=== PATIENT | female | born 1950 | race Caucasian/White ===

== ENCOUNTER 2023-06-01 04:12 | Outpatient (CLI) | payer MEDICARE, BC, SELFPAY | END 2023-06-01 04:13 | disposition home or self-care (01) | LOC: AMB 06-05 20:38 | PROVIDERS: Visit Provider Internal Medicine | DX: E11.649 Type 2 diabetes mellitus with hypoglycemia without coma (principal); R41.82 Altered mental status, unspecified | CPT/HCPCS: A0425; A0427 ==

== ENCOUNTER 2023-06-01 05:35 | Emergency (ER) | payer MEDICARE, BC, SELFPAY ==
--- NOTE | 2023-06-01 05:45 | ED_ITS ---
HPI - General Adult General Chief complaint: Diabetic Related Problem Stated complaint: low blood sugar Time Seen by Provider: 06/01/23 05:45 History of Present Illness HPI narrative: Patient is a 72-year-old woman who takes Ozempic Jardiance and insulin for her diabetes. She states that her insulin and Ozempic of been stable but Jardiance was recently added. Patient became weak and diaphoretic over night and blood sugars at home were in the 50-60 range. This is unusual for her. She developed no chest pain shortness a breath orthopnea no PND no nausea no vomiting. EMS was called the patient was given oral glucose with improvement of blood sugar to greater than 100. Patient is lead was going to refuse transfer she was feeling much better but did come in for further evaluation. She is now feeling fine. Related Data Home Medications Medication Instructions Recorded Confirmed insulin aspar prt-insulin aspart 28 - 40 unit subcut USEASDIRECTD 06/01/23 06/01/23 100 unit/mL (70-30) subcutaneous soln (Novolog Mix 70-30 U-100 Insuln) simvastatin 40 mg tablet (Zocor) 40 mg PO QHS 06/01/23 06/01/23 Allergies Allergy/AdvReac Type Severity Reaction Status Date / Time atorvastatin Allergy Mild Muscle Verified 06/01/23 05:54 Cramps Review of Systems Status of ROS: Reports: 10 or more systems reviewed and unremarkable except as noted in History and below [facility] Medical History (Updated 06/01/23 @ 07:28 by Easton Gaytan MD) Renal insufficiency ?N28.9 - Disorder of kidney and ureter, unspecified (ICD-10) Dyslipidemia ?E78.5 - Hyperlipidemia, unspecified (ICD-10) Chronic kidney disease, stage 4 (severe) ?N18.4 - Chronic kidney disease, stage 4 (severe) (ICD-10) Diabetic neuropathy ?E11.40 - Type 2 diabetes mellitus with diabetic neuropathy, unspecified (ICD-10) 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 EYES: No scleral icterus. LYMPH: No supraclavicular or cervical lymphadenopathy. SKIN: Visible skin seen during exam normal or with benign process only. EXT: No dependent lower extremity pedal edema. HEART: Regular rate and rhythm with no murmurs, rubs, or gallops. LUNGS: Clear to auscultation bilaterally with no crackles or wheezes. ABD: Soft, non tender, non distended. PSYCH: Good eye contact, speech is not pressured. Const: Vital Signs, click to edit/add: Vital Signs - 24 hr 06/01/23 05:46 06/01/23 07:18 Temperature 98.2 F Pulse Rate [Right Pulse Oximeter] 87 67 Respiratory Rate 18 16 Blood Pressure [Ri t Upper Arm] 150/75 H 132/74 Pulse Oximetry 99 95 Oxygen Delivery Me thod Room Air Room Air Course Course ED Course: Patient seen and examined. Will start with 500 mL of normal saline and obtain CBC CMP and troponin. Vital Signs Vital signs: Initial Vital Signs Temperature 98.2 F 06/01/23 05:46 Temperature Source Temporal Artery Scan 06/01/23 05:46 Pulse Rate 87 06/01/23 05:46 Respiratory Rate 18 06/01/23 05:46 Blood Pressure 150/75 H 06/01/23 05:46 Blood Pressure Mean 100 06/01/23 05:46 Blood Pressure Position Sitting 06/01/23 05:46 Pulse Oximetry 99 06/01/23 05:46 Oxygen Delivery Method Room Air 06/01/23 05:46 Vital Signs Temperature 98.2 F 06/01/23 05:46 Pulse Rate 87 06/01/23 05:46 Respiratory Rate 18 06/01/23 05:46 Blood Pressure 150/75 H 06/01/23 05:46 Pulse Oximetry 99 06/01/23 05:46 Oxygen Delivery Method Room Air 06/01/23 05:46 Temperature 98.2 F 06/01/23 05:46 Pulse Rate 67 06/01/23 07:18 Respiratory Rate 16 06/01/23 07:18 Blood Pressure 132/74 06/01/23 07:18 Pulse Oximetry 95 06/01/23 07:18 Oxygen Delivery Method Room Air 06/01/23 07:18 Medical Decision Making MDM Narrative Medical decision making narrative: Patient is a 72-year-old woman who woke up with hypoglycemia. She has taken oral glucose both at the scene and via EMS and her blood sugars down 168. Troponin is negative CBC is unremarkable electrolytes look reasonable with the exception of a creatinine of 3.0. She states this this is chronic and she is follow-up appointment in the next several weeks with Nephrology. At this time I did cut her insulin back from 28 units the morning and 28 units in the evening to 28 units twice daily. She Will continue her Ozempic and Jardiance. She will follow-up with her doctor this coming week for further direction on her blood sugars. Lab Data Labs: Lab Results 06/01/23 Range/Units 06:07 WBC 11.54 H (4.50-11.00) K/uL RBC 4.36 (4.00-5.20) m/uL Hgb 13.4 (12.0-16.0) gm/dL Hct 42.2 (33.0-51.0) % MCV 97 (80-100) fL MCH 31 (26-34) pg MCHC 32 (32-36) gm/dL RDW Coeff of Cierra 14.4 (11.5-15.5) % Plt Count 283 (140-440) K/uL Neut % (Auto) 75.8 H (42.0-72.0) % Lymph % (Auto) 15.1 L (20-44) % [place] % (Auto) 7.4 (0.0-11.0) % Eos % (Auto) 0.4 (0.0-7.0) % Baso % (Auto) 0.3 (0.0-3.0) % Neut # (Auto) 8.70 H (1.7-7.0) K/uL Lymph # (Auto) 1.70 (0.90-2.90) K/uL [place] # (Auto) 0.90 (0.00-0.90) K/UL Eos # (Auto) 0.00 (0.00-0.50) K/uL Baso # (Auto) 0.00 (0.00-0.30) K/uL Abs Immat Gran (auto) 0.10 (0.00-0.30) K/uL Imm/Tot Granulo (auto) 1.0 % Sodium 141 (135-149) mmol/L Potassium 4.2 (3.6-5.1) mmol/L Chloride 110 (96-114) mmol/L Carbon Dioxide 22 (20-32) mmol/L Anion Gap 9 (7-15) mEq/L BUN 54 H (7-30) mg/dL Creatinine 3.0 H (0.5-1.5) mg/dL Estimated Creat Clear 15.03 Estimated GFR 16 ml/min Glucose 168 H (60-115) mg/dL Calcium 9.0 (8.4-10.6) mg/dL Total Bilirubin 0.4 (0.1-1.5) mg/dL AST 27 (12-35) U/L ALT 23 (4-35) U/L Alkaline Phosphatase 87 (40-150) U/L Troponin I < 0.01 L (0.01-0.04) ng/mL Total Protein 6.0 (6.0-8.3) g/dL Albumin 3.7 (3.3-5.0) g/dL Discharge Plan Discharge Clinical Impression: Hypoglycemia Patient Disposition: Home, Self-Care Condition: Stable Instructions: Hypoglycemia in a Person with Diabetes (ED) Additional Instructions: Decrease insulin to 28 units twice daily Continue the remainder medication Monitor diet Call your doctor this coming week for further instructions. Activity Level: No Restrictions Discharge Diet: Regular Prescriptions: No Action insulin asp prt-insulin aspart [Novolog Mix 70-30 U-100 Insuln] 100 unit/mL (70-30) solution 28 - 40 unit subcut USEASDIRECTD Rx Instructions: take 28 units AM, 40 units PM. simvastatin [Zocor] 40 mg tablet 40 mg PO QHS Follow Up/Referrals: Provider,Not a Local [Primary Care Provider] - Stand Alone Forms: MyHealth Info Instructions
[2023-06-01 05:46] VITALS: BP 150/75; PULSE 87; RESP 18; TEMP 36.8; O2SAT 99; BMI 25.0
[2023-06-01] MEDS: 0.9 % SODIUM CHLORIDE 500 ML 500 ML IV (05:59)
[2023-06-01 06:26] LABS: Albumin* 3.7 g/dL (3.3-5.0); Chloride* 110 mmol/L (96-114); Potassium* 4.2 mmol/L (3.6-5.1); Sodium* 141 mmol/L (135-149)
[2023-06-01 06:28] LABS: Est. Creatinine Clearance* 15.03; Estimated Glomerular Filt Rate 16 ml/min
[2023-06-01 06:29] LABS: Alanine Aminotransferase* 23 U/L (4-35); Alkaline Phosphatase* 87 U/L (40-150); Anion Gap 9 mEq/L (7-15); Aspartate Amino Transferase* 27 U/L (12-35); Bilirubin Total* 0.4 mg/dL (0.1-1.5); Blood Urea Nitrogen* 54 mg/dL (7-30); Carbon Dioxide* 22 mmol/L (20-32); Glucose* 168 mg/dL (60-115)
[2023-06-01 06:30] LABS: Basophils Percent Auto 0.3 % (0.0-3.0); Eosinophils Percent Auto 0.4 % (0.0-7.0); Hematocrit 42.2 % (33.0-51.0); Hemoglobin* 13.4 gm/dL (12.0-16.0); Lymphocytes Percent Auto 15.1 % (20-44); Mean Corpuscular HGB Conc 32 gm/dL (32-36); Mean Corpuscular Hemoglobin 31 pg (26-34); Mean Corpuscular Volume 97 fL (80-100); Monocytes Percent Auto 7.4 % (0.0-11.0); Neutrophils Percent Auto 75.8 % (42.0-72.0); Platelet Count* 283 K/uL (140-440); RDW Coefficient of Variation % 14.4 % (11.5-15.5); Red Blood Count 4.36 m/uL (4.00-5.20); White Blood Count* 11.54 K/uL (4.50-11.00)
[2023-06-01 06:39] LABS: Slide Review Reflex No
[2023-06-01 07:09] LABS: Troponin I* < 0.01 ng/mL (0.01-0.04)
[2023-06-01 07:18] VITALS: BP 132/74; PULSE 67; RESP 16; O2SAT 95
--- NOTE | 2023-06-01 07:18 | ED.NURSE ---
patient is feeling better and wants to go home. stated i am tired.
== END 2023-06-01 07:38 | disposition home or self-care (01) ==
PROVIDERS: Emergency Provider Internal Medicine
DX: E11.649 Type 2 diabetes mellitus with hypoglycemia without coma (principal)
CPT/HCPCS: 36415; 80053; 82962; 84484; 85025; 99283; 99284; J7120

== ENCOUNTER 2025-08-27 07:05 | Observation (INO) | payer MEDICARE, BC, SELFPAY ==
--- OUTSIDE RECORDS SUMMARY | 2025-07-13 11:00 | XMS_ITS | Encounter Summary ---
Author Organization [email or web address] Address [address] [place] [id number] Care Team Providers Care Director Of Testing Name Role Phone Lisandro Amor MD Primary Care Provider [phone] Reason for Visit * ReasonCommentsMOHS SURGERYBCC Right Chin * Consult/Transfer Care (Routine) - New RequestSpecialtyDiagnoses / Procedures Referred By ContactReferred To Contact Diagnoses Basal cell carcinoma of face Jose Cruz Gallegos MD [address] [place] [address] Phone: tel: fax: Referral IDStatusReasonStart DateExpiration DateVisits RequestedVisits [id number] Encounter Details DateTypeDepartmentCare Team (Latest Contact Info)Yvsxhcnyosa70/12/2025 11:00 AM CSTOffice Visit [facility] [address] [place], [place] [address] Genna Rowell MD [address] [place] [address] Basal cell carcinoma of chin (Primary Dx) Social History Tobacco UseTypesPacks/DayYears UsedDateSmoking Tobacco: FormerCigarettes0.520 Smokeless Tobacco: Never Comments:Quit smoking: Alcohol UseStandard Drinks/WeekCommentsNot Currently0 (1 standard drink = 0.6 oz pure alcohol)Social, <2 drink/monthAUDIT-CAnswerDate RecordedQ1: How often do you have a drink containing alcohol?Monthly or less01/14/2022Q2: How many drinks containing alcohol do you have on a typical day when you are drinking?1 or 2 01/14/2022Q3: How often do you have six or more drinks on one occasion?Never 01/14/2022HQ-2AnswerDate RecordedPHQ-2 [id number] Stability Vital SignAnswerDate RecordedIn the last 12 months, was there a time when you were not able to pay the mortgage or rent on time?No01/14/2022In the last 12 months, how many places have you lived?In the last 12 months, was there a time when you did not have a steady place to sleep or [facility] (including now)?No01/14/2022Hunger Vital SignAnswerDate RecordedWithin the past 12 months, you worried that your food would run out before you got the money to buymore. Never true06/29/2025Within the past 12 months, the food you bought just didn't last and you didn't have money to get more.Never true06/29/2025PRAPARE - TransportationAnswerDate RecordedIn the past 12 months, has lack of transportation kept you from medical appointments or from getting medications?No 06/29/2025In the past 12 months, has lack of transportation kept you from meetings, work, or from getting things needed for daily living?No06/29/2025 Housing Stability Vital SignAnswerDate RecordedIn the last 12 months, was there a time when you were not able to pay the mortgage or rent on time?Patient udvnkhir86/29/2025In the past 12 months, how many times have you moved where you were living?t any time in the past 12 months, were you homeless or living in a long term (including now)?No06/29/2025HC UtilitiesAnswerDate Recorded In the past 12 months has the [employer], gas, oil, or water [email or web address] threatened to shut off services in your home?No06/29/2025CommentsNoSex and Gender InformationValueDate RecordedSex Assigned at BirthNot on fileLegal SexFemale 12/16/2014 5:04 PM CDTGender IdentityNot on fileSexual OrientationNot on file OccupationIndustryJob Start DateJob End DateNWNot on fileNot on fileNot on file documented as of this encounter Patient Instructions * Patient Instructions* Bonny Durant RN - 07/13/2025 11:00 AM ALIGNMENT SPECIALIST Dermatologic Surgery Wound Care All Patients: Following skin surgery, you can expect: Mild to moderate bruising on or around surgical site Moderate swelling Mild to moderate pain For surgery on the scalp, forehead, religious, eye or nose - bruising and swelling around the eyes is normal and usually lasts for several days. For surgery on the arm, hand, leg and foot - swelling of the hands or feet is normal. Keeping the area elevated and using an arm sling or wrapping with an VIOLETA wrap will help to control swelling. Call the office or present to urgent care if you experience any of the following: Constant fever above 101 F Intense pain near surgical site Increased swelling, spreading redness or uncontrolled bleeding Reopening of the wound at any time Yellowish drainage from the wound Bleeding: During the first 24 to 48 hours, a small amount of bleeding around the dressing/bandage may be noticed. You may reinforce the dressing with more tape if needed. Try to avoid removing the dressing even if light bleeding is noticed, since this may lead to even more bleeding. If bleeding or drainage continues or saturates the dressing: Apply firm and direct pressure with a clean cloth or gauze for 20 minutes (set a timer). Do not release pressure to look at bleeding status during this time. If bleeding continues after 20 minutes, apply pressure again for 20 additional minutes. If the bleeding persists, continue the pressure & call our office for further instructions. If bleeding stops, you may add additional gauze over the dressing or change the saturated dressing, securing it in place with tape. Pain Management: Avoid taking non-prescribed aspirin for pain, unless directed to do so by a physician. Tylenol is okay to take (500-650 mg every 4-6 hours as needed) or you may take the prescription pain medication given to you by our physician. DO NOT take Tylenol along with prescription pain medication as this can be damaging to the liver and kidneys and/or possibly lead to an overdose. If you are still having pain, you may also take ibuprofen 400 mg every 4-6 hours as needed as long as it is ok with your primary care and/or other physicians. Use an ice pack over the surgical site for 20 minutes, every 2 hours while awake for the first 24-48 hours. Activity: Relax and take it easy for the first 48 hours after surgery and avoid activities that would raise your heart rate or blood pressure. Elevate surgical site (head, neck, arm, leg) on 2-3 pillows when lying or sitting. Use an ice pack over the surgical site for 20 minutes, every 2 hours while awake for the first 24-48 hours. Avoid bending over, reaching, stretching, or lifting greater than 10 lbs. for 2 weeks. NO aerobic exercise for 14 days; brisk walking, gardening, golfing, etc. This type of activity can put your sutures under stress, interfere with healing, and cause bleeding. Avoid prolonged water exposure (swimming or soaking) for 3 weeks or until the wound is healed. Avoid drinking alcohol for one week following your procedure. Alcohol increases risk of bleeding. Avoid smoking. Smoking greatly decreases wound healing. IMPORTANT PHONE NUMBERS For any questions concerning your surgical wound site(s), please call the numbers below. If you leave a message, please include your full name, date of , date and office location of surgery, body site, and a brief description of your problem or question: Friday - Friday between the hours of 7:30 a.m. and 3:30 p.m., please call Dr. Rowell's Nurse Line: [phone] ALWAYS USE THIS NUMBER DURING BUSINESS HOURS. Dr. Rowell is not in the office on Friday, but her nurse line is available to answer any questions. For emergency use only on evenings, weekends, and holidays, please call or text Dr. Rowell's mobile number: [phone] We request that you always contact us by phone first, on Dr. Rowell's Nurse Line, to schedule anappointment if you feel you need to be seen in clinic. Standard Care Instructions Leave the initial pressure dressing/bandage applied in the clinic AND KEEP DRY for 2 days, until Friday. When it is time to remove the dressing, remove it very gently as not to disrupt the wound and any sutures underneath. Some amount of blood on the dressing is normal. The easiest way to remove the dressing is to let shower water get it wet and loosen the tape. Once the dressing is off, gently wash the wound with warm, soapy water. Apply ointment (clean Vaseline, petrolatum, or Aquaphor) to the incision with a cotton swab (Q-tip)and cover with a small piece of non-adherent gauze (such as Telfa) and tape. Avoid placing tape or adhesive directly over incision. Do not let the area dry out or form a scab, as it can slow healing and create scarring. Perform site care twice per day until the surface of the incision has healed - usually for 2-3 weeks. 4 weeks after surgery: You can start gently massaging the scar area for a few minutes a day. You may apply silicone gel twice a day (ScarAway, Scar Recovery, Biocorneum or Serica gel available at [facility] or online). Protect the healing scar from the sun. Apply sunscreen regularly when outdoors. NMENT SPECIALIST documented in this encounter Progress Notes * Genna Rowell MD - 07/13/2025 11:00 AM CST Chief Complaint Patient presents with MOHS SURGERY BCC Right Chin S:Chelsey Mosley is a 75 y.o. female referred by Dr. Jose Cruz Gallegos who presents for evaluation and possible surgical treatment of a BCC of the right chin. Pt reports biopsy site has been healing well. No other lesions of concern. ROS: No fevers/chills. No other skin complaints. PMH: Reviewed in health profile. Medications: Reviewed in patients health profile. The patient has a current medication list which includes the following prescription(s): contour next, contour next ez, empagliflozin, freestyle, novolog mix 70/30, insulin pen needle, latanoprost, lisinopril, multiple vitamin, cvs fish oil, semaglutide, and simvastatin. Allergies: The patient is allergic to atorvastatin. OBJECTIVE : Constitutional: Alert, WDWN, cooperative in no acute distress. Biopsy site easily identified and site confirmed by pt and photo Path report was reviewed with pt FINAL DIAGNOSIS - [id number] A. Skin, Right Chin, shave: - Basal cell carcinoma, nodular and micronodular patterns, extending to the base of the specimen. ASSESSMENT/PLAN: 1. Biopsy proven BCC, right chin --Pt was educated regarding dx --Discussed all management options with patient, including benefits and risks of each: no treatment, excision and repair, Mohs micrographic surgery --Pt elected Mohs micrographic surgery and understands the risks of scar (including scar widening, hypertrophic/keloid scar, erythematous/hyperpigmented/hypopigmented scar), bleeding, infection, numbness, recurrence, dehiscence --Patient would like to go forward with procedure today, which was subsequently done --Please see operative note and consent form for further details F/U 1 week, sooner PRN. Also follow-up with referring provider per their instructions or sooner prn. NMENT SPECIALIST * Genna Rowell MD - 07/13/2025 11:00 AM CST 3Dermatology: Mohs Micrographically Controlled Tumor Extirpation Mohs Surgeon: Genna Rowell M.D. [facility] Rn: Bonny Durant RN Anesthesia: 1% Lidocaine with epinephrine Cancer Type: Micronodular and Nodular Basal Cell Carcinoma Anatomic Site: Right chin Preoperative Lesion Size: 0.9 cm x 0.9 cm Operation: Mohs micrographically controlled tumor extirpation Indication: anatomic location and micronodular growth pattern Final Surgical Defect Size: 1.4 cm x 1.1 cm Skin Preparation: Hibiclens Preoperative Medication(s): none MOHS STAGE I: The nature and purpose of the procedure, associated risks, possible consequences and complications,and alternative forms of treatment were explained in detail. The biopsy site was identified and wasconfirmed by the patient and the photo provided. An informed operative consent and photo permit were obtained. The patient was positioned, prepped, and draped in the usual sterile manner. Local anesthesia was obtained with local anesthetic as listed above. The clinically apparent tumor was then debulked with a curette. A 2 mm rim of normal appearing skin was marked circumferentially around the defect. The area thus outlined was excised deep to reticular dermis and subcutis. Hemostasis was achieved with bipolar electrocoagulation. The specimen was oriented, mapped, subdivided into 2 sections, chromacoded, and submitted for horizontal frozen sections. The patient tolerated the procedure well,no complications were noted, and a pressure dressing was placed. Microscopic tumor was found persisting in none of the specimens. The total number of microscopic sections from all Mohs stages was 2. Genna Rowell MD acted in two separate but integrated capacities as both the surgeon and the pathologist. MOHS DEFECT RECONSTRUCTION PROCEDURE Operation: Intermediate linear closure of Mohs defect described above. Final Linear Closure: 4.0 cm. Various closure modalities were discussed with the patient, and it was decided that an intermediatelinear repair would best preserve normal anatomic and functional relationships. The nature and purpose of the procedure, associated risks, possible complications, and alternative methods of treatmentwere explained to the patient in detail by Genna Rowell MD. An informed operative consent was obtained. The patient was positioned, prepped, and draped in the usual sterile manner. Adequate anesthesia was then obtained by infiltrating local anesthesia as listed above along the edges and at thebase of the defect. The edges of the defect were undermined at the dermal subcutaneous layer approximately 1.0 cm in all directions. The edges could then be opposed without significant tension. Excision of standing tissue cones was performed via triangulation technique. Adequate hemostasis was achieved with bipolar electrocoagulation. The subcutaneous and dermal tissues were opposed and sutured with multiple 4-0 Monocryl sutures. The epidermal edges were then closed with multiple 5-0 Prolene sutures. The final incision lines were placed with respect for the patient's natural skin tension lines. The surgical site was lightly scrubbed. A Mupirocin ointment, Telfa and gauze pressure dressing was applied to the surgical site. The patient tolerated the procedure well without complications and was given both verbal and written explicit instructions on postoperative wound care and pain management. Follow-up for suture removal in 7 days. Patient was recommended Extra Strength Tylenol per package directions, as needed for mild pain control. The patient was discharged stable from the Dermatology Clinic. [facility] [address] [place] [id number] NMENT SPECIALIST documented in this encounter Plan of Treatment DateTypeDepartmentCare Team (Latest Contact Info)Kcseyosheux41/05/2026 3:00 PM CSTAppointment [facility] [address] [place] [address] Yas Wallis, OTR/L [address] [place] [address] 12/27/2025 3:15 PM CDTAppointment [facility] [address] [place] [address] Yarelis Mosley, CELL BIOLOGY SCIENTIST, [employer] [address] [place] [address] NameTypePriorityAssociated DiagnosesOrder ScheduleDermatology Surgery/Mohs Consult AdultReferralRoutine Basal cell carcinoma of face Ordered: 06/07/2025documented as of this encounter Visit Diagnoses Diagnosis Basal cell carcinoma of chin- Primary Basal cell carcinoma of skin of other and unspecified parts of face documented in this encounter Care Teams Team MemberRelationshipSpecialtyStart [place] [address] [place] [address] PCP - GeneralFamily Qlbejqgn24/10/24documented as of this encounter
--- OUTSIDE RECORDS SUMMARY | 2025-07-20 12:00 | XMS_ITS | Encounter Summary ---
Author Organization [facility] Address [address] [place] [address] Care Team Providers Care Duct Maker Name Role Phone Lisandro Amor MD Primary Care Provider [phone] Reason for Visit * ReasonCommentsSuture/Staple Removal Encounter Details DateTypeDepartmentCare Team (Latest Contact Info)Igxabwcwvia90/19/2025 12:00 PM CSTNursing Visit [facility] [address] [place] [address] Nurse Teri Rowell Encounter for removal of sutures (Primary Dx) Social History Tobacco UseTypesPacks/DayYears UsedDateSmoking [...] more drinks on one occasion?Never 01/14/2022HQ-2AnswerDate RecordedPHQ-2 Kptjb317Housing Stability Vital SignAnswerDate RecordedIn the last 12 months, was there a time when you were not able to pay the mortgage or rent on time?No01/14/2022In the last 12 months, how many places have you lived?In the last 12 months, was there a time when you did not have a steady place to sleep or slept in ashelter (including now)?No01/14/2022Hunger Vital SignAnswerDate RecordedWithin the past [...] pay the mortgage or rent on time?Patient wbpvdsal05/29/2025In the past 12 months, how many times have you moved where you were living?t any time in the past 12 months, were you homeless or living in a [place] [facility] [place] (including now)?No06/29/2025HC UtilitiesAnswerDate Recorded In the past 12 months has the [employer], gas, oil, or water [employer] threatened to shut off services in your home?No06/29/2025CommentsNoSex and Gender InformationValueDate RecordedSex Assigned at BirthNot on fileLegal SexFemale 12/16/2014 5:04 PM CDTGender IdentityNot on fileSexual OrientationNot on file OccupationIndustryJob Start DateJob End DateNWNot on fileNot on fileNot on file documented as of this encounter Progress Notes * Bonny Durant RN - 07/20/2025 12:00 PM CST Department of Dermatology: Suture Removal Subjective: Chelsey Mosley is here today for suture removal. Site(s): Chin Patient states that the site(s) is healing well. Observation: Well-healing surgical site(s) with sutures in place and no signs of infection. Plan: Sutures removed today from all sites. The site(s) were dressed with petroleum jelly with an adhesive bandage. Patient instructions provided for continued after care, signs of infection, and activity restrictions. Patient is to RTC as directed. Attending Physician: Dr. Rowell DIEM PHYSICAL THERAPIST documented in this encounter Plan of Treatment DateTypeDepartmentCare Team (Latest Contact Info)Ttfyqcxagkj95/05/2026 3:00 PM CSTAppointment [facility] [address] [place] [address] Yas Wallis, OTR/L [address] [place] [address] 12/27/2025 3:15 PM CDTAppointTrinity [facility] [address] [place] [phone] Yarelis Mosley, EXPORT SPECIALIST, HOME HEALTH ATTENDANT [address] [place], [place] [phone] documented as of this encounter Visit Diagnoses Diagnosis Encounter for removal of sutures- Primary documented in this encounter Care Teams Team MemberRelationshipSpecialtyStart [place] [address] [place] [address] PCP - GeneralFamily Zepdufgi42/10/24documented as of this encounter
--- OUTSIDE RECORDS SUMMARY | 2025-08-12 13:40 | XMS_ITS | Encounter Summary ---
Author Organization [facility] Address [address] [place] [address] Care Team Providers Care Charge Account Identification Clerk Name Role Phone Lisandro Amor MD Primary Care Provider [phone] Reason for Referral * Therapies (Routine) - New RequestSpecialtyDiagnoses / ProceduresReferred By ContactReferred To Contact Diagnoses [place] [address] [place] [address] Phone: tel: fax: Referral IDStatusReasonStart DateExpiration DateVisits RequestedVisits [id number] Scheduling Instructions Your clinician has recommended an appointment with Rehabilitation Services. You can quickly schedule your appointment by signing in to your online account at [email or web address] or through the text message you may have received. You can also make an appointment by calling [phone]. We suggest you call your health insurance company about your coverage and benefits for this appointment. QuestionAnswer Appointment Urgency? Non-Urgent Requested Services Evaluate and treat Reason for Visit Cognitive Eval Select Specific Cognitive Eval CPT - Cognitive Performance Test May use saline for irrigation or cleansing Yes dexamethasone use Yes May check glucose per protocol (see policy link below) or if patient has symptoms? Yes TENDER * Procedure/Equipment (Routine) - IncompleteSpecialtyDiagnoses / Procedures Referred By ContactReferred To Contact Diagnoses Osteopenia of multiple sites Procedures DXA Bone Density Spine[place] [address] [place] [address] Phone: tel: fax: Referral IDStatusReasonStart DateExpiration DateVisits RequestedVisits [id number]/12/20253/ TENDER Reason for Visit * ReasonCommentsMedicare Annual Wellness Encounter Details DateTypeDepartmentCare Team (Latest Contact Info)Pxkoctqhfca24/12/2025 1:40 PM CSTOffice Visit [place] [address] [facility] [address] [place] [address] [place] [address] [place] [address] Hypertension, unspecified type (HRC) (Primary Dx); Diabetic nephropathy associated with type 2 diabetes mellitus (HRC); CKD (chronic kidney disease) stage 4, GFR 15-29 ml/min (HRC); Osteopenia of multiple sites; Cognitive impairment; Mild cognitive impairment; Dyslipidemia; Encounter for Medicare annual wellness exam Social History Tobacco UseTypesPacks/DayYears UsedDateSmoking Tobacco: FormerCigarettes0.520 [...] more drinks on one occasion?Never 01/14/2022HQ-2AnswerDate RecordedPHQ-2 Aivns12910/13/2024Housing Stability Vital SignAnswerDate RecordedIn the last 12 months, was there a time when you were not able to pay the mortgage or rent on time?No01/14/2022In the last 12 months, how many places have you lived?In the last 12 months, was there a time when you did not have a steady place to sleep or [facility] ([facility] now)?No01/14/2022Hunger Vital SignAnswerDate RecordedWithin the past [...] pay the mortgage or rent on time?Patient jpvnsfsi53/29/2025In the past 12 months, how many times have you moved where you were living?t any time in the past 12 months, were you homeless or living in a long-term (including now)?No06/29/2025HC UtilitiesAnswerDate Recorded In the past 12 months has the [employer], gas, oil, or water [employer] threatened to shut off services in your home?No06/29/2025CommentsNoSex and Gender InformationValueDate RecordedSex Assigned at BirthNot on fileLegal SexFemale 12/16/2014 5:04 PM CDTGender IdentityNot on fileSexual OrientationNot on file OccupationIndustryJob Start DateJob End DateNWNot on fileNot on fileNot on file documented as of this encounter Last Filed Vital Signs Vital SignReadingTime TakenCommentsBlood Wptdftlc619/7112/08/2025 1:27 PM CAN TENDER Pulse--Temperature--Respiratory Rate--Oxygen Saturation--Inhaled Oxygen Concentration--Appjwe81.2 kg (132 lb 12.8 oz)08/12/2025 1:27 PM USVAzxsma806 cm (5' 4.17)08/12/2025 1:27 PM CSTBody Mass Index22.6708/12/2025 1:27 PM CAN TENDER documented in this encounter Patient Instructions * Patient Instructions* Lisandro Amor MD - 08/12/2025 1:40 PM CAN TENDER Annual Wellness Visit Summary Your care team is recommending the following tests, procedures or services. Some of these recommendations may not be fully covered by Medicare or your insurance. If you have questions, check with your insurance to determine coverage before completing these services. Health Maintenance Due Health Maintenance Due Topic Date Due ??? Pneumococcal PCV20 Immunization Discussion Never done ??? COVID-19 Vaccine ( season) 2025 ??? Dexa 07/28/2025 If your Medicare Welcome or Annual Wellness Visit is showing you are due in the above list, this will be updated after this visit. You had this completed today and are not due for another year. Thank you for coming in for your Medicare Wellness Visit. To make sure we are doing our best to meet your care needs, here are a few important reminders. We want to know your thoughts as we work together to create your care plan, including stopping and starting medications. When we work together on next steps, it's called shared decision making. If there is anything else you would like to discuss, please reach out or schedule a follow-up appointmentif needed. We are here to listen. We want to help you address any concerns you have about the cost of your medications. To find options for the most cost-effective medications near you, go to https://www.OmniForce/hp/pharmacy/drug-cost/index.html You can also find more information in this handout. Health care can be complicated. Sometimes, it can help to share your health information with your family or caregivers. (Caregivers can be friends as well as family.) How much you share is up to you.Here is a helpful link: https://www.OmniForce/blog/uzlsid-wqhi-jljoa-benefits/ We care about nutrition, how much physical activity you get and how much stress, worry or sadness you have in your life. Please reach out to your care team if you have additional information to shareor would like more resources or support. TENDER documented in this encounter Progress Notes * Lisandro Amor MD - 08/12/2025 1:40 PM CST Medicare Wellness Visit Dayton Reyes is a 75 y.o. female who presents for Medicare Annual Wellness History of Present Illness Amy Mosley is a 75 year old female who presents with concerns about short- term memory loss. She notes increasing short-term memory problems, with friends observing she is quieter and has moredifficulty remembering recent events. She often cannot recall activities from the previous day. Shereports no problems driving, getting lost, or with home safety such as leaving the stove on or doors open. She has long-standing diabetes with stable peripheral neuropathy causing chronic numbness in her feet, without new numbness, tingling, or foot sores. She denies hearing changes, dyspnea, chest pain, abdominal pain, or joint pain. has ACP docs Objective BP 139/71 (BP Location: Left Arm, BP Cuff Size: Regular) Ht 5' 4.17 (1.63 m) Wt 132 lb 12.8 oz(60.2 kg) BMI 22.67 kg/m?? Physical Exam ALert, NAD ENT: TM clear, throat clear, neck without adenopathy. CV: RRR Lungs; Clear Skin; no rash Eye; No redness or injection. Ext; No edema Assessment/Plan Adult Wellness Visit Routine wellness visit with no acute concerns. - Administered flu shot. - Continue follow-up with dermatologist managing partner and level vial sealer. Mild cognitive impairment Short-term memory concerns noted by friends. Long-term memory intact. No issues with daily functioning or driving. - Ordered thyroid and B12 tests. - Referred to occupational therapy for cognitive assessment. Osteopenia Due for bone density scan as last scan was six years ago. - Schedule bone density scan. Hypertension, unspecified type (HRC) Diabetic nephropathy associated with type 2 diabetes mellitus (HRC) - Diabetic Foot Check (Ep101) CKD (chronic kidney disease) stage 4, GFR 15-29 ml/min (HRC) - lisinopril (ZESTRIL) 40 MG tablet; Take 1 Tablet (40 mg) by mouth daily. Osteopenia of multiple sites - DXA Bone Density Spine/Hip; Future Cognitive impairment - TSH with Free T4 (if TSH Abnormal); Future - Vitamin B12 Only; Future Mild cognitive impairment - TSH with Free T4 (if TSH Abnormal); Future - Occupational Therapy Dyslipidemia - simvastatin (ZOCOR) 40 MG tablet; Take 1 Tablet (40 mg) by mouth daily at bedtime. Encounter for Medicare annual wellness exam Other orders - Influenza aIIV3 65+ Years (FLUAD) Lisandro Amor MD 08/15/2025, 10:51 AM TENDER documented in this encounter Plan of Treatment DateTypeDepartmentCare Team (Latest Contact Info)Qlpdwpktgeg75/05/2026 3:00 PM CSTAppointment [facility] Physical Therapy [place] [address] [place] [address] Yas Wallis, OTR/L [address] [place] [address] 12/27/2025 3:15 PM CDTAppointment [place] [facility] [address] [place] [address] Yarelis Mosley, RAIL CREW MEMBER, MEN'S GARMENT FITTER [address] [place] [address] NameTypePriorityAssociated DiagnosesOrder ScheduleDXA Bone Density Spine/Hip Imaging NewRoutine Osteopenia of multiple sites Expected: 08/12/2025 (Approximate), Expires: 09/12/2027NameTypePriority Associated DiagnosesOrder ScheduleOccupational TherapyReferralRoutine Mild cognitive impairment Ordered: 08/12/2025documented as of this encounter Results * (ABNORMAL) Vitamin B12 Only (08/12/2025 2:04 PM CAN TENDER)ComponentValueRef Range Test MethodAnalysis TimePerformed AtPathologist SignatureVitamin B121,022(H) 213 - 816 pg/mL08/12/2025 9:47 PM CSTMETHODIST SPECIALTY AND TR[facility]PL[facility]ITAL LABORATORYSpecimen (Source)Anatomical Location / LateralityCollection Method / VolumeCollection TimeReceived TimeBloodVenipuncture / Nsbscvy4308/12/2025 2:04 PM CST08/12/2025 2:04 PM CAN TENDER Narrative Authorizing ProviderResult TypeResult StatusDavid T Mt MDLAB_1Final Result Performing OrganizationAddressCity/State/ZIP CodePhone Number [facility] CLIA: [id number] [facility] * TSH with Free T4 (if TSH Abnormal) (08/12/2025 2:04 PM CAN TENDER)ComponentValueRef RangeTest MethodAnalysis TimePerformed AtPathologist SignatureTSH, Reflex1.60 0.30 - 4.50 uIU/mL08/12/2025 9:40 PM CSTMETHODIST SPECIALTY AND [facility] LABORATORYSpecimen (Source)Anatomical Location / LateralityCollection Method / VolumeCollection TimeReceived TimeBloodVenipuncture / Famaszt5208/12/2025 2:04 PM CST08/12/2025 2:04 PM CAN TENDER Narrative Authorizing ProviderResult TypeResult StatusLisandro Amor MDLAB_1Final Result Performing OrganizationAddressCity/State/ZIP CodePhone Number [facility] CLIA: [id number] [facility] [address] documented in this encounter Visit Diagnoses Diagnosis Hypertension, unspecified type (HRC)- Primary Diabetic nephropathy associated with type 2 diabetes mellitus (HRC) CKD (chronic kidney disease) stage 4, GFR 15-29 ml/min (HRC) Chronic kidney disease, Stage IV (severe) Osteopenia of multiple sites Cognitive impairment Unspecified persistent mental disorders due to conditions classified elsewhere Mild cognitive impairment Mild cognitive impairment, so stated Dyslipidemia Other and unspecified hyperlipidemia Encounter for Medicare annual wellness exam documented in this encounter Care Teams Team MemberRelationshipSpecialtyStart [place] [address] [place] [address] PCP - GeneralFamily Brpiwtgg98/10/24documented as of this encounter
--- OUTSIDE RECORDS SUMMARY | 2025-08-12 14:10 | XMS_ITS | Encounter Summary ---
Author Organization [employer] [facility] Address [address], [place] [address] Care Team Providers Care Junior Marketing Associate Name Role Phone MtLisandro donnelly MD Primary Care Provider [phone] Encounter Details DateTypeDepartmentCare Team (Latest Contact Info)Mnfthyclyli31/12/2025 2:10 PM CSTLab Visit [facility] [address] [place] [phone] Cognitive impairment; Mild cognitive impairment Social History Tobacco UseTypesPacks/DayYears UsedDateSmoking Tobacco: FormerCigarettes0.520 [...] more drinks on one occasion?Never 01/14/2022HQ-2AnswerDate RecordedPHQ-2 Gfgro73510/13/2024Housing Stability Vital SignAnswerDate RecordedIn the last 12 months, was there a time when you were not able to pay the mortgage or rent on time?No01/14/2022In the last 12 months, how many places have you lived?In the last 12 months, was there a time when you did not have a steady place to sleep or slept in [facility] (including now)?No01/14/2022Hunger Vital SignAnswerDate RecordedWithin the past [...] pay the mortgage or rent on time?Patient heyviclp69/29/2025In the past 12 months, how many times have you moved where you were living?t any time in the past 12 months, were you homeless or living in a [facility] (including now)?No06/29/2025HC UtilitiesAnswerDate Recorded In the past 12 months has the electric, gas, oil, or water company threatened to shut off services in your home?No06/29/2025CommentsNoSex and Gender InformationValueDate RecordedSex Assigned at BirthNot on fileLegal SexFemale 12/16/2014 5:04 PM CDTGender IdentityNot on fileSexual OrientationNot on file OccupationIndustryJob Start DateJob End DateNWNot on fileNot on fileNot on file documented as of this encounter Plan of Treatment DateTypeDepartmentCare Team (Latest Contact Info)Zvmkljfjeaf01/05/2026 3:00 PM CSTAppointment [facility] at [facility] Physical Therapy [place] [address] [place] [address] Yas Wallis, OTR/L [address] [place] [address] 12/27/2025 3:15 PM CDTAppointment [facility] [address] [place] [address] Yarelis Mosley, ARBITRATOR, LIAISON ENGINEER [address] [place] [address] documented as of this encounter Procedures Procedure NamePriorityDate/TimeAssociated DiagnosisCommentsTSH, SENSITIVE (WITH REFLEX)Lmzgimw5508/12/2025 2:04 PM PROOF COINS INSPECTOR Cognitive impairment Mild cognitive impairment VITAMIN B12 HRNMGzgynnn58/12/2025 2:04 PM PROOF COINS INSPECTOR Cognitive impairment documented in this encounter Results * (ABNORMAL) Vitamin B12 Only (08/12/2025 2:04 PM PROOF COINS INSPECTOR)ComponentValueRef Range Test MethodAnalysis TimePerformed AtPathologist SignatureVitamin B121,022(H) 213 - 816 pg/mL08/12/2025 9:47 PM CSTW[facility] LABORATORYSpecimen (Source)Anatomical Location / LateralityCollection Method / VolumeCollection TimeReceived TimeBloodVenipuncture / Emyoxfk1008/12/2025 2:04 PM CST08/12/2025 2:04 PM PROOF COINS INSPECTOR Narrative Authorizing ProviderResult TypeResult StatusDavid T Mt MDLAB_1Final Result Performing OrganizationAddressCity/State/ZIP CodePhone Number [facility] CLIA: [id number] [address] [place], [place] [address] * TSH with Free T4 (if TSH Abnormal) (08/12/2025 2:04 PM PROOF COINS INSPECTOR)ComponentValueRef RangeTest MethodAnalysis TimePerformed AtPathologist SignatureTSH, Reflex1.60 0.30 - 4.50 uIU/mL08/12/2025 9:40 PM CSTWOM[facility] LABORATORYSpecimen (Source)Anatomical Location / LateralityCollection Method / VolumeCollection TimeReceived TimeBloodVenipuncture / Fcedewf8508/12/2025 2:04 PM CST08/12/2025 2:04 PM PROOF COINS INSPECTOR Narrative Authorizing ProviderResult TypeResult StatusDaromero Amor MDLAB_1Final Result Performing OrganizationAddressCity/State/ZIP CodePhone Number [facility] CLIA: [id number] [address] documented in this encounter Visit Diagnoses Diagnosis Cognitive impairment Unspecified persistent mental disorders due to conditions classified elsewhere Mild cognitive impairment Mild cognitive impairment, so stated documented in this encounter Care Teams Team MemberRelationshipSpecialtyStart [place] [address] [place] [address] PCP - GeneralFamily Crrxrlch71/10/24documented as of this encounter
--- OUTSIDE RECORDS SUMMARY | 2025-08-12 14:20 | XMS_ITS | Encounter Summary ---
Author Organization [facility] [facility] [employer] Address [address], [place] [address] Care Team Providers Care Station Air Traffic Control Specialist Name Role Phone Lisandro Amor MD Primary Care Provider [phone] Encounter Details DateTypeDepartmentCare Team (Latest Contact Info)Rtzptnssjiv48/12/2025 2:20 PM CSTLab Visit [facility] [address] [place] [phone] Recurrent UTI Social History Tobacco UseTypesPacks/DayYears UsedDateSmoking Tobacco: FormerCigarettes0.520 [...] more drinks on one occasion?Never 01/14/2022HQ-2AnswerDate RecordedPHQ-2 Sfnzx32510/13/2024Housing Stability Vital SignAnswerDate RecordedIn the last 12 months, was there a time when you were not able to pay the mortgage or rent on time?No01/14/2022In the last 12 months, how many places have you lived?105/16/2022In the last 12 months, was there a time when you did not have a steady place to sleep or slept in [facility] (including now)?No01/14/2022Hunger Vital SignAnswerDate RecordedWithin the past [...] pay the mortgage or rent on time?Patient /29/2025In the past 12 months, how many times have you moved where you were living?t any time in the past 12 months, were you homeless or living in a snf (including now)?No06/29/2025HC UtilitiesAnswerDate Recorded In the past 12 months has the [employer], gas, oil, or water [employer] threatened to shut off services in your home?No06/29/2025CommentsNoSex and Gender InformationValueDate RecordedSex Assigned at BirthNot on fileLegal SexFemale 12/16/2014 5:04 PM CDTGender IdentityNot on fileSexual OrientationNot on file OccupationIndustryJob Start DateJob End DateNWNot on fileNot on fileNot on file documented as of this encounter Plan of Treatment DateTypeDepartmentCare Team (Latest Contact Info)Ctqoqzpatdd80/05/2026 3:00 PM CSTAppointment [facility] at [facility] Physical Therapy [place] [address] [place] [address] Yas Wallis OTR/Aníbal [address] [place] [address] 12/27/2025 3:15 PM CDTAppointment [facility] [address] [place] [address] Yarelis Mosley, MAINTENANCE PAINTER, SLEEPING CAR SERVICE ATTENDANT [address] [place] [address] documented as of this encounter Visit Diagnoses Diagnosis Recurrent UTI Urinary tract infection, site not specified documented in this encounter Care Teams Team MemberRelationshipSpecialtyStart [place] [address] [place] [address] PCP - GeneralFamily Vgnuotxl12/10/24documented as of this encounter
[2025-08-27] VITALS (10 sets, daily range): BP systolic 97–136; BP diastolic 53–86; PULSE 86–97; RESP 16–18; TEMP 36.6–36.9; O2SAT 89–96; BMI 22.5
--- OUTSIDE RECORDS SUMMARY | 2025-08-27 07:07 | XMS_ITS | Encounter Summary ---
Author Organization [employer] [facility] Address [address] [place] [address] Care Team Providers Care Skid Road Worker Name Role Phone Lisandro Amor MD Primary Care Provider Encounter Details DateTypeDepartmentCare Team (Latest Contact Info)Ttngqrdtbvr41/07/2025Results Follow-Up [facility] [address] [place] [address] Jose Cruz Gallegos MD [facility] [place] [address] Social History Tobacco UseTypesPacks/DayYears UsedDateSmoking Tobacco: FormerCigarettes0.520 [...] more drinks on one occasion?Never 01/14/2022HQ-2AnswerDate RecordedPHQ-2 Jlzpz410Housing Stability Vital SignAnswerDate RecordedIn the last 12 [...] pay the mortgage or rent on time?Patient ekynalgh77/29/2025In the past 12 months, how many times have you moved where you were living?t any time in the past 12 months, were you homeless or living in a fci (including now)?No06/29/2025HC UtilitiesAnswerDate Recorded In the past 12 months has the [employer], gas, oil, or water [employer] threatened to shut off services in your home?No06/29/2025CommentsNoSex and Gender InformationValueDate RecordedSex Assigned at BirthNot on fileLegal SexFemale 12/16/2014 5:04 PM CDTGender IdentityNot on fileSexual OrientationNot on file OccupationIndustryJob Start DateJob End DateNWNot on fileNot on fileNot on file documented as of this encounter Plan of Treatment DateTypeDepartmentCare Team (Latest Contact Info)Ajplhpoedhm84/05/2026 3:00 PM CSTAppointment [facility] Physical [facility] [address] [place] [address] Yas Wallis, OTR/L [address] [place] [address] 12/27/2025 3:15 PM CDTAppointment [facility] [address] [place] [phone] Yarelis Mosley, NAIL PROFESSIONAL, DIRECTOR OF CLINICAL SERVICES [address] [place], [place] [phone] documented as of this encounter Visit Diagnoses Not on filedocumented in this encounter Care Teams Team MemberRelationshipSpecialtyStart [place] [address] [place] [address] PCP - GeneralFamily Qmpmltxn99/10/24documented as of this encounter
--- OUTSIDE RECORDS SUMMARY | 2025-08-27 07:07 | XMS_ITS | Encounter Summary ---
Author Organization [facility] Address [address] [place] [address] Care Team Providers Care Air Pollution Control Engineer Name Role Phone Lisandro Amor MD Primary Care Provider [phone] Encounter Details DateTypeDepartmentCare Team (Latest Contact Info)Qtmvffisqud45/14/2025E-Visit [facility] [address] [place] [phone] [place] [address] Social History Tobacco UseTypesPacks/DayYears UsedDateSmoking Tobacco: FormerCigarettes0.520 [...] more drinks on one occasion?Never 01/14/2022HQ-2AnswerDate RecordedPHQ-2 Camjt275Housing Stability Vital SignAnswerDate RecordedIn the last 12 months, was there a time when you were not able to pay the mortgage or rent on time?No01/14/2022In the last 12 months, how many places have you lived?In the last 12 months, was there a time when you did not have a steady place to sleep or slept in [facility] (including now)?No01/14/2022Hunger Vital SignAnswerDate RecordedWithin the past [...] pay the mortgage or rent on time?Patient gklyvyyi05/29/2025In the past 12 months, how many times have you moved where you were living?t any time in the past 12 months, were you homeless or living in a alf (including now)?No06/29/2025HC UtilitiesAnswerDate Recorded In the past [...] Plan of Treatment DateTypeDepartmentCare Team (Latest Contact Info)Tkebpfuuyvx81/05/2026 3:00 PM CSTAppointment [facility] Physical [facility] [place] [address] [place] [address] Yas Wallis, OTR/L [address] [place] [address] 12/27/2025 3:15 PM CDTAppointment [facility] [address] [place] [phone] Yarelis Mosley, PHOTOGRAPHY COLORIST, DAILY SALES AUDIT CLERK [address] [place] [address] documented as of this encounter Visit Diagnoses Not on filedocumented in this encounter Care Teams Team MemberRelationshipSpecialtyStart [place] [address] [place] [address] PCP - GeneralFamily Uyrexbxl27/10/24documented as of this encounter
--- OUTSIDE RECORDS SUMMARY | 2025-08-27 07:07 | XMS_ITS | Clinical Summary ---
Author Organization [facility] Address [address] [place] [address]. [place] [address] Care Team Providers Care Electrostatic Painter Name Role Phone Pritesh Tino Primary Care Provider [phone] Samuel Singh APRN BATCH HEAT TREAT OPERATOR Unavailable [phone] Unavailable Unavail able Valeria Gallegos MD Unavailable [phone] Jose Cruz ANIMAL KILLER Unavailable Unavailable Valeria Gallegos MD Unavailable [phone] Allergies Active AllergyReactionsCriticalityNoted CbnoVsmegirqYeqgyjxudpmt68/11/2006 PN: LW Reaction: muscle pain Medications MedicationSigDispense QuantityRefillsLast FilledStart DateEnd DateStatus insulin aspart prot & aspart (NOVOLOG MIX 70/30 FLEXPEN) (70-30) 100 UNIT/ML pen 24 units in morning before bkfst. 28 units before dinner. Indications: Type 2 Diabetes, ICD10 11.2206/ctive lisinopril (ZESTRIL) 40 MG tablet Take 40 mg by mouth daily.01/31/2024ctive simvastatin (ZOCOR) 40 MG tablet Take 40 mg by mouth.03/02/2024ctive Active Problems ProblemNoted DateDiagnosed DateCKD (chronic kidney disease) stage 4, GFR 15-29 ml/min02/29/2020DM type 2 (diabetes mellitus, type 2)06/02/2017 Overview (05/04/2024): She was seen at [facility] [address] Diabetes mellitus, type 2 Encounters DateTypeDepartmentCare PjefJpgnqlsnfgf61/27/2025[facility] [address] [place] [address] Sailaja Iraheta RN from Last 3 Months Immunizations ImmunizationAdministration DatesNext DueCOVID-19 Monovalent 18+ (Moderna) 12/15/2020Flu, Ebffsebgqxc13/11/2015Hep B, Adult (Heplisav- B)07/18/2022 Hepatitis B, Adult (Energix-B/Recombivax HB)11/12/2022,04/23/2022Influenza (High Dose) Trivalent,PF (Fluzone)07/24/2015Influenza Vaccine 65+ (FLUAD)07/15/2023, 06/12/2021,05/23/2020Influenza Vaccine 65+ (Fluzone HD)07/18/2022neumo Conj 13- V (2010&after)06/17/2018,06/02/2017Pneumococcal 23 peueow1506/21/2019RSV Vaccine (Arexvy)01/14/2024TDAP (Adacel,Boostrix)02/05/2016Yellow Fever04/18/2016Zoster recombinant adjuvanted (Shingrix)03/07/2021,06/21/2019Zoster vaccine, live 10/03/2014 Family History Medical HistoryRelationCommentsDementiaMotherRelationStatusCommentsMother Social History Tobacco UseTypesPacks/DayYears UsedDateSmoking Tobacco: LxlvfiWzjvhtzwan4Xglt: 1983Smokeless Tobacco: Never Tobacco Cessation:Counseling Given: Not Answered Comments:Peak smoking 0.5 ppd. Quit in 1982 Alcohol UseStandard Drinks/WeekCommentsNot Currently0 (1 standard drink = 0.6 oz pure alcohol)PHQ-2AnswerDate RecordedPHQ-2 Oxryi909/11/2024Comments UnknownSex and Gender InformationValueDate RecordedSex Assigned at BirthFemale 04/01/2024 1:20 PM CDTLegal TuoYxyiof14/01/2024 11:14 AM CDTGender Identity Vobqlb8104/01/2024 1:20 PM CDTSexual FnnqjyhekujXntvixet77/01/2024 1:20 PM CDT Last Filed Vital Signs Vital SignReadingTime TakenCommentsBlood Eyxmjktw806/7807/12/2024 8:04 AM INSTRUCTIONAL DESIGN MANAGER Jaufg463807/12/2024 8:04 AM CSTTemperature--Respiratory Rate--Oxygen Lycyjwutor46% 07/12/2024 8:04 AM CSTInhaled Oxygen Concentration--Cqqpfd43 kg (132 lb 4.8 oz) 07/12/2024 8:04 AM PELCwltqe631.6 cm (5' 4)07/12/2024 8:04 AM CSTBody Mass Index22.7107/12/2024 8:04 AM INSTRUCTIONAL DESIGN MANAGER Plan of Treatment Health MaintenanceDue DateLast DoneCommentsADVANCE CARE JHNUTPTG1949NNUAL REVIEW OF HM WCWLCH59 1949DIABETIC FOOT EXAM1949EYE EXAM1949LIPID 1950 4383FMWJXVWTWQPK47/14/6743LLYIYOONMNF04/14/0628OZOMROKJSJ1949LUNG CANCER OEDSRLWVL36/14/1999FALL RISK KJZTKSYFGK51/14/2014PHQ-2 (once per calendar year)/3447L9C69/9251WVR87/07/2024MEDICARE ANNUAL WELLNESS VISIT/, 01/01/2021, 06/21/2019, Additional history dzlbzbHLRMIRIXRD80/11/202511/OVID-19 VACCINE ( season)/06/2024, 07/18/2022, 01/01/2022, Additional history exists INFLUENZA VACCINE (#1)/03/2024, 07/15/2023, 07/18/2022, Additional history existsDTAP/TDAP/TD VACCINE (2 - Td or Tdap)/01/2016DEXA /PNEUMOCOCCAL VACCINE 50+ SOKNGBlodsojgo79/21/2019, 06/17/2018, 06/02/2017ZOSTER SWFVDCTMfawwajuz57/07/2021, 06/21/2019, 10/03/2014 RSV VUQYKQQHbfkevcgu42/15/2024LK HLHZJnmeyxzcd98/11/2024HEPATITIS C SCREENING Gurafauus99/11/2024, 06/11/20190599EUTXQBJIRAXguutvder60/11/2024MAMMO SCREENING Qscwalxjgspm27/31/2025, 11/29/2024, 11/27/2023, Additional history existsHPV VACCINE (No Doses Required)CompletedMENINGITIS VACCINEAged OutNo longer eligible based on patient's age to complete this topic Procedures Procedure NamePriorityDate/TimeAssociated DiagnosisCommentsROUTINE UA WITH MICROSCOPIC REFLEX TO SGRALOWWjbmyyr75/11/2024 3:13 PM INSTRUCTIONAL DESIGN MANAGER Stage 4 chronic kidney disease (H) Type 2 diabetes mellitus with stage 4 chronic kidney disease, without long-term current use of insulin (H) CBC WITH PLATELETS AND YGHHHGLUKAJUSthqtci21/11/2024 1:05 PM INSTRUCTIONAL DESIGN MANAGER Stage 4 chronic kidney disease (H) Type 2 diabetes mellitus with stage 4 chronic kidney disease, without long-term current use of insulin (H) HEPATITIS C DATSINIMDomkvyv34/11/2024 1:05 PM INSTRUCTIONAL DESIGN MANAGER Stage 4 chronic kidney disease (H) Type 2 diabetes mellitus with stage 4 chronic kidney disease, without long-term current use of insulin (H) Encounter for screening for other viral diseases COMPREHENSIVE METABOLIC ULWXSHebowla99/11/2024 1:05 PM INSTRUCTIONAL DESIGN MANAGER Stage 4 chronic kidney disease (H) Type 2 diabetes mellitus with stage 4 chronic kidney disease, without long-term current use of insulin (H) HEMOGLOBIN K8EUzxolrl83/11/2024 1:05 PM INSTRUCTIONAL DESIGN MANAGER Stage 4 chronic kidney disease (H) Type 2 diabetes mellitus with stage 4 chronic kidney disease, without long-term current use of insulin (H) MAMMOGRAM - HIM SCAN11/27/2023 12:00 AM CDTfrom Last 3 Months or Most Recently Relevant to Health Maintenance Results * (ABNORMAL) UA with Microscopic reflex to Culture (07/12/2024 3:13 PM INSTRUCTIONAL DESIGN MANAGER) ComponentValueRef RangeTest MethodAnalysis TimePerformed AtPathologist SignatureColor UrineYellowColorless, Straw, Light Yellow, Npsevi8507/12/2024 4:00 PM [facility] - CORE LABAppearance UrineCloudy(A)Clear07/12/2024 4:00 PM [facility] - CORE LABGlucose Tbvyy1513(A)Negative mg/dL 07/12/2024 4:00 PM [facility] - CORE LABBilirubin UrineNegative Yzjukrae82/11/2024 4:00 PM [facility] - CORE LABKetones UrineNegative Negative mg/dL07/12/2024 4:00 PM [facility] - CORE LABSpecific Red Level Urine1.0151.003 - 1.4817407/12/2024 4:00 PM [facility] - CORE LABBlood UrineSmall(A)Exbydpbg52/11/2024 4:00 PM [facility] - CORE LABpH Urine 5.55.0 - 7.011 4:00 PM [facility] - CORE LABProtein Albumin Urine70(A)Negative mg/dL07/12/2024 4:00 PM [facility] - CORE LAB Urobilinogen UrineNormalNormal, 2.0 mg/dL07/12/2024 4:00 PM [facility] - CORE LABNitrite DnmobMuwjdtvzJoexorhp79/11/2024 4:00 PM [facility] - CORE LABLeukocyte Esterase UrineLarge(A)Jwqahqwv26/11/2024 4:00 PM [facility] - CORE LABBacteria UrineFew(A)None Seen /HPF07/12/2024 4:[address] [facility] - CORE LABWBC Clumps UrinePresent(A)None Seen /HPF07/12/2024 4:00 PM [facility] - CORE LABMucus UrinePresent(A)None Seen /LPF 07/12/2024 4:00 PM [facility] - CORE LABRBC Urine10(H)<=2 /HPF 07/12/2024 4:00 PM [facility] - CORE LABWBC Urine>182(H)<=5 /HPF 07/12/2024 4:00 PM [facility] - CORE LABSquamous Epithelials Urine1<=1 /HPF07/12/2024 4:00 PM [facility] - CORE LABSpecimen (Source) Anatomical Location / LateralityCollection Method / VolumeCollection Time Received TimeUrineURINE SPECIMEN OBTAINED BY CLEAN CATCH PROCEDURE / Unknown Non-blood Collection / Pdyffdd9007/12/2024 3:13 PM CST07/12/2024 3:14 PM INSTRUCTIONAL DESIGN MANAGER Narrative [facility] - CORE LAB - 07/12/2024 4:00 PM INSTRUCTIONAL DESIGN MANAGER Urine Culture ordered based on laboratory criteria Authorizing ProviderResult TypeResult StatusCarolyn Kaycee Quiles NPLAB - URINE ORDERABLESFinal ResultPerforming OrganizationAddressCity/State/ZIP CodePhone Number [facility] [address] [place] [address] 1st Floor [place] [address] * CBC with platelets and differential (07/12/2024 1:05 PM INSTRUCTIONAL DESIGN MANAGER)ComponentValueRef RangeTest MethodAnalysis TimePerformed AtPathologist SignatureWBC Count10.14.0 - 11.0 10e3/uL07/12/2024 1:26 PM [facility] - CORE LABRBC Count4.70 3.80 - 5.20 10e6/uL07/12/2024 1:26 PM [facility] - CORE LABHemoglobin 14.511.7 - 15.7 g/dL07/12/2024 1:26 PM [facility] - CORE LABHematocrit 45.835.0 - 47.0 %07/12/2024 1:26 PM [facility] - [facility]ORE AGRYJY7508 - 100 fL07/12/2024 1:26 PM [facility] - [facility]ORE GTBXBL80.926.5 - 33.0 pg 07/12/2024 1:26 PM [facility] ERUYCNC51.731.5 - 36.5 g/dL 07/12/2024 1:26 PM [facility] GAGDGU95.010.0 - 15.0 %07/12/2024 1:26 PM [facility] - CORE LABPlatelet Juves511682 - 450 10e3/uL 07/12/2024 1:26 PM [facility]% Lhvxpdocdxg51%07/12/2024 1:26 PM [facility]% Vzpihvezlcf20%07/12/2024 1:26 PM INSTRUCTIONAL DESIGN MANAGER [facility]% Monocytes7%07/12/2024 1:26 PM [facility]% Eosinophils1%07/12/2024 1:26 PM [facility]% Basophils1%07/12/2024 1:26 PM [facility]% Immature Granulocytes1%07/12/2024 1:26 PM [facility] - CORE LABNRBCs per 100 WBC0<1 /1668807/12/2024 1:26 PM [facility] - CORE LABAbsolute Neutrophils7.11.6 - 8.3 e307/12/2024 1:26 PM [facility] - CORE LABAbsolute Lymphocytes2.20.8 - 5.3 10e307/12/2024 1:26 PM [facility] - CORE LABAbsolute Monocytes0.70.0 - 1.3 07/12/2024 1:26 PM [facility] - CORE LABAbsolute Eosinophils0.10.0 - 0.7 e3/ 07/12/2024 1:26 PM [facility] - CORE LABAbsolute Basophils0.10.0 - 0.2 e307/12/2024 1:26 PM [facility] - CORE LABAbsolute Immature Granulocytes0.1<=0.4 10e3/07/12/2024 1:26 PM [facility] Absolute NRBCs0.010e3/07/12/2024 1:26 PM [facility] LAB Specimen (Source)Anatomical Location / LateralityCollection Method / Volume Collection TimeReceived TimeBloodSTRUCTURE OF LEFT UPPER LIMB / Unknown Venipuncture / Jnyqesp7007/12/2024 1:05 PM CST07/12/2024 1:17 PM INSTRUCTIONAL DESIGN MANAGER Narrative Authorizing ProviderResult TypeResult StatusCarolyn Kaycee Ivor NPLAB - BLOOD ORDERABLESFinal ResultPerforming OrganizationAddressCity/State/ZIP CodePhone Number [facility] - [address] 1st Floor [place] [address] * Hepatitis C antibody [KHC233] (07/12/2024 1:05 PM INSTRUCTIONAL DESIGN MANAGER)ComponentValueRef Range Test MethodAnalysis TimePerformed AtPathologist SignatureHepatitis C Antibody QunlxgizmihRakrhtzmosg11/12/2024 3:51 AM CSTUU LABORATORYComment:A nonreactive screening test result does not exclude the possibility of exposure to or infection with HCV. Nonreactive screening test results in individuals with prior exposure to HCV may be due to antibody levels below the limit of detection of this assay or lack of reactivity to the HCV antigens used in this assay. Patients with recent HCV infections (<3 months from time of exposure) may have false-negative HCV antibody results due to the time needed for seroconversion (average of 8 to 9 weeks).Specimen (Source)Anatomical Location / LateralityCollection Method / VolumeCollection TimeReceived TimeBlood STRUCTURE OF LEFT UPPER LIMB / UnknownVenipuncture / Ceuccbg3107/12/2024 1:05 PM CST07/12/2024 1:17 PM INSTRUCTIONAL DESIGN MANAGER Narrative Authorizing ProviderResult TypeResult StatusCarolycourtney Quiles NPLAB - BLOOD ORDERABLESFinal ResultPerforming OrganizationAddressCity/State/ZIP CodePhone Number [facility] [place] [facility] [address] [facility], [address] [place] [phone] * (ABNORMAL) Hemoglobin A1c [LAB90] (07/12/2024 1:05 PM INSTRUCTIONAL DESIGN MANAGER)ComponentValueRef RangeTest MethodAnalysis TimePerformed AtPathologist SignatureEstimated Average Kkdvpyq691(H)<117 mg/dL07/12/2024 4:41 PM [facility]ST[facility] LABORATORYHemoglobin A1C7.7(H)<5.7 %07/12/2024 4:41 PM CSTUU LABORATORYComment: Normal <5.7% Prediabetes 5.7-6.4% ?? Diabetes 6.5% or higher Note: Adopted from ADA consensus guidelines. Specimen (Source)Anatomical Location / LateralityCollection Method / Volume Collection TimeReceived TimeBloodSTRUCTURE OF LEFT UPPER LIMB / Unknown Venipuncture / Gdcdlcl2107/12/2024 1:05 PM CST07/12/2024 1:17 PM INSTRUCTIONAL DESIGN MANAGER Narrative Authorizing ProviderResult TypeResult StatusCardarvin Quiles NPLAB - BLOOD ORDERABLESFinal ResultPerforming OrganizationAddressCity/State/ZIP CodePhone Number [facility] [place] [facility] [address] [facility] [address], [address] [place] [address], [place] * (ABNORMAL) Comprehensive metabolic panel [LAB17] (07/12/2024 1:05 PM INSTRUCTIONAL DESIGN MANAGER) ComponentValueRef RangeTest MethodAnalysis TimePerformed AtPathologist OefpfigpiUlnmug034938 - 145 mmol/L109/11/2023 1:51 PM [facility] - CORE LABPotassium5.33.4 - 5.3 mmol/L109/11/2023 1:51 PM [facility] - CORE LABCarbon Dioxide (CO2)2722 - 29 mmol/L109/11/2023 1:51 PM [facility] - CORE LABAnion Pkm768 - 15 mmol/L109/11/2023 1:51 PM [facility] - CORE LABUrea Yeaometf43.7(H)8.0 - 23.0 mg/dL07/12/2024 1:51 PM [facility] - CORE LABCreatinine2.72(H)0.51 - 0.95 mg/dL07/12/2024 1:51 PM [facility] - CORE LABGFR Mxnhjizh44(L)>60 mL/min/1.76n23807/12/2024 1:51 PM INSTRUCTIONAL DESIGN MANAGER [facility] - CORE LABComment:eGFR calculated using 2020 CKD-EPI equation. Calcium9.78.8 - 10.4 mg/dL07/12/2024 1:51 PM [facility] - CORE LAB Comment:Reference intervals for this test were updated on 03/16/2024 to reflect our healthy population more accurately. There may be differences in the flagging of prior results with similar values performed with this method. Those prior results can be interpreted in the context of the updated reference intervals.Pmokyfjw59986 - 107 mmol/L109/11/2023 1:51 PM [facility] - CORE XBJZqwqyor426(H)70 - 99 mg/dL07/12/2024 1:51 PM [facility] - CORE LABAlkaline Sgwvbmcmtze60283 - 150 U/L109/11/2023 1:51 PM [facility] - CORE GYNDOP957 - 45 U/L109/11/2023 1:51 PM [facility] - CORE ICTQWL914 - 50 U/L109/11/2023 1:51 PM [facility] - CORE LABProtein Total6.76.4 - 8.3 g/dL07/12/2024 1:51 PM [facility] - CORE LABAlbumin4.13.5 - 5.2 g/dL07/12/2024 1:51 PM [facility] - CORE LABBilirubin Total0.3<=1.2 mg/dL07/12/2024 1:51 PM [facility] - CORE LABSpecimen (Source) Anatomical Location / LateralityCollection Method / VolumeCollection Time Received TimeBloodSTRUCTURE OF LEFT UPPER LIMB / UnknownVenipuncture / Unknown 07/12/2024 1:05 PM CST07/12/2024 1:17 PM INSTRUCTIONAL DESIGN MANAGER Narrative Authorizing ProviderResult TypeResult StatusCarolyn Kaycee Quiles NPLAB - BLOOD ORDERABLESFinal ResultPerforming OrganizationAddressCity/State/ZIP CodePhone Number [facility] [address] 1st Floor [place] [address] * Mammogram - HIM Scan (11/27/2023 12:00 AM CDT)Anatomical RegionLaterality ModalityOtherSpecimen (Source)Anatomical Location / LateralityCollection Method / VolumeCollection TimeReceived Time11/27/2023 Narrative Authorizing ProviderResult TypeResult StatusProvider OutsideIMG MAMMOGRAPHY ORDERABLESFinal Result from Last 3 Months or Most Recently Relevant to Health Maintenance Insurance Care Teams Team MemberRelationshipSpecialtyStart DateEnd Date Tino Jonas [address] [place] [address] PCP - GeneralInternal Medicine04/01/24 Samuel Singh APRN BATCH HEAT TREAT OPERATOR [address] [place] [address] Nurse PractitionerNephrology04/13/[address] [place] [address] Registered DietitianDietitian, Registered04/13/24 Valeria Gallegos MD [address] [place] [address] [id number] MDSurgery04/13/24 Jose Cruz MSW Social Worker04/13/24 Valeria Gallegos MD [address] [place] [address] [id number] Assigned Surgical Acxkgqvu73/23/24
--- OUTSIDE RECORDS SUMMARY | 2025-08-27 07:07 | XMS_ITS | Encounter Summary ---
Author Organization [email or web address] Address [address] [address] Care Team Providers Care Utility Systems Repairer Operator Name Role Phone Lisandro Amor MD Primary Care Provider [phone] Reason for Visit * ReasonCommentsPost-Op Follow Up Call Encounter Details DateTypeDepartmentCare Team (Latest Contact Info)Qxtyazglyiq51/13/2025Telephone [facility] [address] [place], [place] [address] Nurse Maral Rowell Ervin Post-Op Follow Up Call Social History Tobacco UseTypesPacks/DayYears UsedDateSmoking Tobacco: FormerCigarettes0.520 [...] more drinks on one occasion?Never 01/14/2022HQ-2AnswerDate RecordedPHQ-2 [id number] Stability Vital SignAnswerDate RecordedIn the last 12 [...] pay the mortgage or rent on time?Patient vmwsmxqo43/29/2025In the past 12 months, how many times have you moved where you were living?t any time in the past 12 months, were you homeless or living in a nursing home (including now)?No06/29/2025HC UtilitiesAnswerDate Recorded In the past 12 months has the [employer], gas, oil, or water [employer] threatened to shut off services in your home?No06/29/2025CommentsNoSex and Gender InformationValueDate RecordedSex Assigned at BirthNot on fileLegal SexFemale 12/16/2014 5:04 PM CDTGender IdentityNot on fileSexual OrientationNot on file OccupationIndustryJob Start DateJob End DateNWNot on fileNot on fileNot on file documented as of this encounter Nursing Notes * Bonny Durant RN - 07/14/2025 12:21 PM CST Post op phone call. Patient reports they are doing well, and have no questions or concerns at this time. Reviewed wound care and dressing changes. Advised patient to contact our office with any questions pertaining to their healing surgical site. Patient verbalized understanding. FIELD WORKER documented in this encounter Plan of Treatment DateTypeDepartmentCare Team (Latest Contact Info)Ygswpnlqzzj24/05/2026 3:00 PM CSTAppointment [facility] [place] [address] [place] [address] Yas Wallis, OTR/L [address] [place] [address] 12/27/2025 3:15 PM CDTAppointReg[facility] [address] [place] [address] Yarelis Mosley, ROLL SCALE WORKER, DEPARTMENT CLINICIAN [address] [place], [place] [phone] documented as of this encounter Visit Diagnoses Not on filedocumented in this encounter Care Teams Team MemberRelationshipSpecialtyStart [place] [address] [place] [address] PCP - GeneralFamily Zmtwrehh45/10/24documented as of this encounter
--- OUTSIDE RECORDS SUMMARY | 2025-08-27 07:07 | XMS_ITS | Encounter Summary ---
Author Organization [employer] Address [address] [place] [id number] Care Team Providers Care Camp Housekeeper Name Role Phone Lisandro Amor MD Primary Care Provider [phone] Encounter Details DateTypeDepartmentCare Team (Latest Contact Info)Xhjxfixhrlv54/18/2025Results Follow-Up [place] [address] [address] [place] [phone] [place] [address] [place], [place] [phone] Social History Tobacco UseTypesPacks/DayYears UsedDateSmoking Tobacco: FormerCigarettes0.520 [...] more drinks on one occasion?Never 01/14/2022HQ-2AnswerDate RecordedPHQ-2 Afski00910/13/2024Housing Stability Vital SignAnswerDate RecordedIn the last 12 [...] pay the mortgage or rent on time?Patient vsyagttu88/29/2025In the past 12 months, how many times have you moved where you were living?t any time in the past 12 months, were you homeless or living in a intermediate (including now)?No06/29/2025HC UtilitiesAnswerDate Recorded In the past 12 months has the [employer], gas, oil, or water [employer] threatened to shut off services in your home?No06/29/2025CommentsNoSex and Gender InformationValueDate RecordedSex Assigned at BirthNot on fileLegal SexFemale 12/16/2014 5:04 PM CDTGender IdentityNot on fileSexual OrientationNot on file OccupationIndustryJob Start DateJob End DateNWNot on fileNot on fileNot on file documented as of this encounter Plan of Treatment DateTypeDepartmentCare Team (Latest Contact Info)Dfspxrdzpfi83/05/2026 3:00 PM CSTAppointment [facility] Physical [place] [phone] [place] [phone] Yas Wallis OTR/L [address] [place] [address] 12/27/2025 3:15 PM CDTAppointment [facility] [address] [place] [phone] Yarelis Mosley, PERMACULTURE CONTRACTOR, SCORE CALLER [address] [place], [place] [address] documented as of this encounter Visit Diagnoses Not on filedocumented in this encounter Care Teams Team MemberRelationshipSpecialtyStart [place] [address] [place] [address] PCP - GeneralFamily Ewbpucrj59/10/24documented as of this encounter
--- OUTSIDE RECORDS SUMMARY | 2025-08-27 07:07 | XMS_ITS | Clinical Summary ---
Author Organization [facility] Address [address], [place] [address] Care Team Providers Care Laborer Cheesemaking Name Role Phone MtLisandro donnelly MD Primary Care Provider [phone] Source Comments You are receiving this document as you are listed as the primary care provider,follow-up provider, or the patient has been referred to you for consultation.This is in compliance with the Medicare andKn[facility] Hospitalca[facility] EHR Incentive Program,which states Providers who transition their patient to another setting of careor provider of care or refers their patient to another provider of care shouldprovide summary care record for each transition of care or referral. [facility]StartGall[facility] CenterGamer Guides Allergies Active AllergyReactionsCriticalityNoted MrfsEyzoujynAjobfwanuxkn73/11/2006 PN: LW Reaction: muscle pain Medications MedicationSigDispense QuantityRefillsLast FilledStart DateEnd DateStatus [place]-3 Fatty Acids ([facility] FISH OIL) 1200 MG CAPS Indications: PN:01/18/2010ctive Multiple Vitamins-Minerals (MULTIVITAMIN OR) Take 1 tablet by mouth daily (every 24 hours).13109/06/2006ctive latanoprost (XALATAN) 0.005 % eye drop solution INSTILL 1 GTT IN OU HS31Active Blood Glucose Monitoring Suppl (CONTOUR NEXT EZ) w/Device KIT Indications:Type 2 diabetes mellitus with hyperglycemia, unspecified whether termite treater helper insulin use (HRC)Do not dispense until patient requests. Substitute meter based on insurance formulary, if needed. 1 Kit 11/24/2018Active FreeStyle lancets Indications:Type 2 diabetes mellitus with hyperglycemia, unspecified whether termite treater helper insulin use (HRC)Use to test twice daily. 200 Each 4Active blood glucose (CONTOUR NEXT) test strip Indications:Type 2 diabetes mellitus with hyperglycemia, with long-term current use of insulin (HRC)Use 1 Each to test two times a day. 200 Strip 5Active insulin pen needle (B-D ULTRAFINE III SHORT PEN) 31G X 8 MM SHORT Inject 1 pen needle under the skin twice daily. Use with pen injector device. Each needle is for one-time use only. 200 Each 5Active empagliflozin (JARDIANCE) 10 MG tablet Take 1 Tablet (10 mg) by mouth daily. 90 Tablet 6Active insulin aspart protamine-aspart insulin (NOVOLOG MIX 70/30) (70-30) 100 UNIT/ML pen injection Indications:Type 2 diabetes mellitus with nephropathy (HRC)24 units in morning before bkfst. 30 units before dinner. Indications: Type 2 Diabetes, ICD10 11.22 60 mL 5Active semaglutide (OZEMPIC) 2 MG/3ML injection Indications:Type 2 diabetes mellitus with nephropathy (HRC)Inject 0.5 mg subcutaneously once a week. 9 mL 5Active lisinopril (ZESTRIL) 40 MG tablet Indications:CKD (chronic kidney disease) stage 4, GFR 15-29 ml/min (HRC)Take 1 Tablet (40 mg) by mouth daily. 90 Tablet 5Active simvastatin (ZOCOR) 40 MG tablet Indications:Dyslipidemia (HRC)Take 1 Tablet (40 mg) by mouth daily at bedtime. 90 Tablet 5Active simvastatin (ZOCOR) 40 MG tablet Indications:Dyslipidemia (HRC)Take 1 Tablet (40 mg) by mouth daily at bedtime. 90 Tablet Discontinued(*Med change OR same med OR reorder, new dose/directions) lisinopril (ZESTRIL) 40 MG tablet Indications:CKD (chronic kidney disease) stage 4, GFR 15-29 ml/min (HRC)Take 1 Tablet (40 mg) by mouth daily. 90 Tablet /577779/08/2025Discontinued(*Med change OR same med OR reorder, new dose/directions) Active Problems ProblemNoted DateDiagnosed DateAcquired cystic kidney /23/2022Diabetic nephropathy associated with type 2 diabetes zfwifgua38/05/2022CKD (chronic kidney disease) stage 4, GFR 15-29 ml/min02/29/2020Secondary hyperparathyroidism of renal bajrsb5602/29/2020Adrenal rvaqtj2807/12/2019 Overview (01/01/2021): CT scab in 2019 , was seen by Endo Pulmonary mtvwln3207/09/2019 Overview (07/09/2019): CT scan 2018 Gmpardqkilk23/21/2019Frequent /21/2019Renal ulenjubewjklt56/17/2018 Qkzbmlrxkyki59/13/8202Cwxhhbulguavye61/26/2005 Overview (04/04/2016): LW Onset: 49Tgl13 Resolved Problems ProblemNoted DateDiagnosed DateResolved DateUrinary tract infection without lwtcoykmx74 Overview (10/10/2020): Added automatically from request for surgery [id number] Frequent UTIChronic kidney disease (CKD), stage III (moderate)4DyslipidemiaUncontrolled type 2 diabetes mellitus with diabetic mobsqcgzidf66 Overview (01/01/2021): She was seen at Endo Injury of ankle, leftType 2 diabetes mellitus, controlled Overview (04/23/2017): DM Type2 Rzwhqqabz08 Overview (04/23/2017): LW Modifier: complete work up was normal LW Onset: 1979 ; Microhematuria Type 2 diabetes mellitus, pjbbasfuxo37/22/ Overview (04/23/2017): DM Encounters DateTypeDepartmentCare XzkwLbyxlrorfof33/18/2025Results Follow-Up [address] [phone] Lisandro Amor MD 08/12/2025 2:20 PM CSTLab Visit [facility] [address] [place] [phone] Recurrent UTI08/12/2025 2:10 PM CSTLab Visit [address] [phone] Cognitive impairment; Mild cognitive czijwdgfat55/12/2025 1:40 PM CSTOffice Visit [address] [phone] Lisandro Amor MD Hypertension, unspecified type (HRC) (Primary Dx); Diabetic nephropathy associated with type 2 diabetes mellitus (HRC); CKD (chronic kidney disease) stage 4, GFR 15-29 ml/min (HRC); Osteopenia of multiple sites; Cognitive impairment; Mild cognitive impairment; Dyslipidemia; Encounter for Medicare annual wellness exam07/20/2025 12:00 PM CSTNursing Visit [facility] [address] [place], [place] [phone] Teri Fischer Ervin Encounter for removal of sutures (Primary Dx)07/14/2025Telephone [place] [address] [place] [phone] Maral Fischer Ervin Post-Op Follow Up Call07/13/2025 11:00 AM CSTOffice Visit [facility] [address] [place] [address] Genna Rowell MD Basal cell carcinoma of chin (Primary Dx)06/21/2025 2:30 PM CDTOffice Visit [facility] [address] [place] [phone] Noemy Shea MBBS Type 2 diabetes mellitus with nephropathy (HRC) (Primary Dx); Essential hypertension (HRC); Dyslipidemia (high LDL; low HDL) (HRC); Adrenal nodule (HRC)06/18/2025 9:30 AM CDTLab Visit [facility] [address] [place] [phone] Type 2 diabetes mellitus with nephropathy (HRC)2025E-Visit [facility] [address] [place] [phone] Mychart, Generic Provider 06/07/2025 1:30 PM CDTLab Visit [facility] [address] [place] [phone] CKD (chronic kidney disease) stage 4, GFR 15-29 ml/min (HRC)06/07/2025Telephone [facility] [address] [place] [address] Jose Cruz Gallegos MD Szlcrifs65/07/2025Results Follow-Up [facility] [address] [place] [address] Jose Cruz Gallegos MD 05/31/2025 1:30 PM CDTOffice Visit [facility] [address] [place] [address] Jose Cruz Gallegos MD Sun-damaged skin (Primary Dx); Inflamed seborrheic keratosis; Seborrheic keratosis; Multiple pigmented nevi; Hemangioma of skin; Neoplasm of skin (HRC)from Last 3 Months Immunizations ImmunizationAdministration DatesNext DueHepB Adult (Engerix-B, 20+ yrs, 3 dose series)11/12/2022,04/23/2022HepB Adult (Heplisav-B, 19+ yrs, 2 dose series) 07/18/2022Influenza IIV3 (Trivalent) Fluzone Highdose, 65+ Yrs (40213)07/24/2015 Influenza IIV4 (Quadrivalent) Fluad, 65+ Yrs07/15/2023,06/12/2021,05/23/2020 Influenza IIV4 (Quadrivalent) Fluzone, 65+ Yrs07/18/2022Influenza aIIV3 65+ Years (Fluad)08/12/2025,07/08/2024Influenza, Unspecified Oonguuwlwmw85/23/2015, 07/12/2015Moderna Monovalent 12+07/07/2021,12/15/2020,1PCV13 (Prevnar) 06/17/2018,06/02/2017PPSV23 (Pneumovax)06/21/2019Pfizer Bivalent 12+07/18/2022 Pfizer COVID-19 12+ (Comirnaty)4Pfizer Monovalent 12+2RSV Uigxeg1401/14/2024TDAP (BOOSTRIX)02/05/2016YF (Yellow Fever)04/18/2016Zoster (Zostavax)10/03/2014Zoster RZV (Shingrix)03/07/2021,06/21/2019 Family History Medical HistoryRelationNameCommentsHypertensionBirth FatherParkinsonsBirth Fatherdiest at 85Heart DiseaseBirth Motherdied at 85CancerBrother 1Leukemia Brother 1diet 56Cancer, BreastNegative Family HistoryCancer, OvaryNegative Family HistoryRelationNameStatusCommentsBirth FatherDeceasedBirth MotherDeceased Brother 1DeceasedBrother 2Alive Social History Tobacco UseTypesPacks/DayYears UsedDateSmoking Tobacco: FormerCigarettes0.520 Smokeless Tobacco: Never Tobacco Cessation:Counseling Given: Not Answered Comments:Quit smoking: Alcohol UseStandard Drinks/WeekCommentsNot Currently0 (1 standard drink = 0.6 oz pure alcohol)Social, <2 drink/monthAUDIT-CAnswerDate RecordedQ1: How often do you have a drink containing alcohol?Monthly or less01/14/2022Q2: How many drinks containing alcohol do you have on a typical day when you are drinking?1 or 2 01/14/2022Q3: How often do you have six or more drinks on one occasion?Never 2PHQ-2AnswerDate RecordedPHQ-2 Kmmzm30210/13/2024Housing Stability Vital SignAnswerDate RecordedIn the last 12 months, was there a time when you were not able to pay the mortgage or rent on time?No01/14/2022In the last 12 months, how many places have you lived?In the last 12 months, was there a time when you did not have a steady place to sleep or slept in [place] (including now)?No01/14/2022Hunger Vital SignAnswerDate RecordedWithin the past [...] pay the mortgage or rent on time?Patient zesjpttb19/29/2025In the past 12 months, how many times have you moved where you were living?t any time in the past 12 months, were you homeless or living in a halfway (including now)?No06/29/2025HC UtilitiesAnswerDate Recorded In the past 12 months has the [employer], gas, oil, or water [employer] threatened to shut off services in your home?No06/29/2025CommentsNoSex and Gender InformationValueDate RecordedSex Assigned at BirthNot on fileLegal SexFemale 12/16/2014 5:04 PM CDTGender IdentityNot on fileSexual OrientationNot on file OccupationIndustryJob Start DateJob End DateNWNot on fileNot on fileNot on file Last Filed Vital Signs Vital SignReadingTime TakenCommentsBlood Plzhfike591/7112 1:27 PM TIP STITCHER Xjnyf325506/21/2025 2:45 PM RBFFtqjrzvestt34.8 ??C (98.2 ??F)01/01/2021 8:22 AM CDTpt reportedRespiratory Wikw425610/23/2020 11:15 AM CSTOxygen Plnmtmkliw31% 10/23/2020 11:15 AM CSTInhaled Oxygen Concentration--Gxfigs83.2 kg (132 lb 12.8 oz)08/12/2025 1:27 PM FIDKrempv737 cm (5' 4.17)08/12/2025 1:27 PM CSTBody Mass Index22.6708/12/2025 1:27 PM TIP STITCHER Plan of Treatment DateTypeDepartmentCare Team (Latest Contact Info)Vkfmvxzgyre63/05/2026 3:00 PM CSTAppointment [facility] [place] [address] [place], [place] [phone] Yas Wallis, OTR/L [address] [place] [address] 12/27/2025 3:15 PM CDTAppointment [facility] [address] [place] [address] Yarelis Mosley, SENIOR GROUP MANAGER, HOMEWORKER [address] [place], [place] [phone] Health MaintenanceDue DateLast DoneCommentsPneumococcal PCV20 Immunization Fiuqipcvhe1949COVID-19 Vaccine ( season)512/06/2024, 07/18/2022, 01/01/2022, Additional history ysnubpHdth97/27/202511/ Diabetes: AASB5W03/610/, 01/20/2025, 07/12/2024, Additional history existsDTaP/Tdap/Td Vaccine (2 - Tdap)/01/2016Diabetes: Eye Exam /12/2024, 03/09/2024, 03/09/2024, Additional history existsDiabetes: Albumin/Creatinine Ratio, Urine, 07/05/2024, 07/30/2022, Additional history existsDiabetes: Cufhdlhhid52, 06/07/2025, 01/20/2025, Additional history existsMed Monitoring Renal (Potassium)06/18/2026 06/18/2025, 06/07/2025, 01/20/2025, Additional history existsDiabetes: Foot Exam , 08/10/2024, 03/28/2022 (Completed), Additional history existsMedicare Annual Wellness Visit/08/2025, 12/30/2023, 12/30/2023 (Completed), Additional history existsDiabetes: Lipid Panel, 06/08/2024, 08/05/2023, Additional history existsFIT Colon Cancer Screening Oggfsdkdyynv26/05/2016 (Completed), 08/31/2015 (Completed), 08/31/2015 (Completed)Hep C Screening (Preventive Services)Rpcklynit30/11/2019Pneumococcal Vaccine 50+ TrwYczacqkjo80/21/2019, 06/17/2018, 06/02/2017Zoster/Shingles QmlhkvnDczquknii13/07/2021, 06/21/2019, 10/03/2014HepB VaccineCompleted 11/12/2022, 07/18/2022, 2RSV EcdsgzxFfxuyziay59/15/2024Influenza IogruyrIjxfpxvmj94/12/2025, 07/08/2024, 07/15/2023, Additional history exists HepA VaccineAged OutNo longer eligible based on patient's age to complete this topicHib VaccineAged OutNo longer eligible based on patient's age to complete this topicMCV4 VaccineAged OutNo longer eligible based on patient's age to complete this topicMeningococcal B VaccineAged OutNo longer eligible based on patient's age to complete this topic Procedures Procedure NamePriorityDate/TimeAssociated DiagnosisCommentsVITAMIN B12 ONLY Kxsswqh3008/12/2025 2:04 PM TIP STITCHER Cognitive impairment TSH, SENSITIVE (WITH REFLEX)Kmleahy2808/12/2025 2:04 PM TIP STITCHER Cognitive impairment Mild cognitive impairment ALBUMIN/CREAT KXWYINczumfm02/18/2025 9:42 AM CDT Type 2 diabetes mellitus with nephropathy (HRC) LIPID PANEL & DIRECT LDL (IF NEEDED)Mhouodz5906/18/2025 9:40 AM CDT Type 2 diabetes mellitus with nephropathy (HRC) BASIC METABOLIC TFRWFWdfophs37/18/2025 9:40 AM CDT Type 2 diabetes mellitus with nephropathy (HRC) HGB G6VSbvfcef24/18/2025 9:40 AM CDT Type 2 diabetes mellitus with nephropathy (HRC) TP/CREA RATIO, SRLYQTlwsbzs26/07/2025 1:37 PM CDT CKD (chronic kidney disease) stage 4, GFR 15-29 ml/min (HRC) HEMOGLOBIN, PYJNWFddefpn59/07/2025 1:28 PM CDT CKD (chronic kidney disease) stage 4, GFR 15-29 ml/min (HRC) VITAMIN D 25-HYDROXY, GSQKUQmktauo46/07/2025 1:28 PM CDT CKD (chronic kidney disease) stage 4, GFR 15-29 ml/min (HRC) INTACT QMPHoiirwg83/07/2025 1:28 PM CDT CKD (chronic kidney disease) stage 4, GFR 15-29 ml/min (HRC) RENAL FUNCTION PKDOMSpqhpfh16/07/2025 1:28 PM CDT CKD (chronic kidney disease) stage 4, GFR 15-29 ml/min (HRC) SKIN VOQSVGQdgiiuj78/30/2025 1:28 PM CDT Neoplasm of skin (HRC) SURGICAL PATHOLOGY, HFEXLPSWXTDTbuvsyw16/30/2025 1:28 PM CDT Neoplasm of skin DESTRUCTION OF GJMTYKSncmizc08/30/2025 1:24 PM CDT Inflamed seborrheic keratosis TOLU (DIABETIC EYE EXAM)04/05/2025 DXA BONE DENSITY SPINE/OFSXxmucnd36/27/2019 3:11 PM TIP STITCHER Screening for osteoporosis HEPATITIS C ANTIBODY, WITH REFLEX (ANTI-HCV)Vwkyxvb2106/11/2019 9:59 AM CDT Need for hepatitis C screening test from Last 3 Months or Most Recently Relevant to Health Maintenance Results * TSH with Free T4 (if TSH Abnormal) (08/12/2025 2:04 PM TIP STITCHER)ComponentValueRef RangeTest MethodAnalysis TimePerformed AtPathologist SignatureTSH, Reflex1.60 0.30 - 4.50 uIU/mL08/12/2025 9:40 PM CST[facility] LABORATORYSpecimen (Source)Anatomical Location / LateralityCollection Method / VolumeCollection TimeReceived TimeBloodVenipuncture / Wuknsse3008/12/2025 2:04 PM CST08/12/2025 2:04 PM TIP STITCHER Narrative Authorizing ProviderResult TypeResult StatusDavid T Mt MDLAB_1Final Result Performing OrganizationAddressCity/State/ZIP CodePhone Number [facility] CLIA: [id number] [address] * (ABNORMAL) Vitamin B12 Only (08/12/2025 2:04 PM TIP STITCHER)ComponentValueRef Range Test MethodAnalysis TimePerformed AtPathologist SignatureVitamin B121,022(H) 213 - 816 pg/mL08/12/2025 9:47 PM CSTBA[facility] LABORATORYSpecimen (Source)Anatomical Location / LateralityCollection Method / VolumeCollection TimeReceived TimeBloodVenipuncture / Qklhsov7108/12/2025 2:04 PM CST08/12/2025 2:04 PM TIP STITCHER Narrative Authorizing ProviderResult TypeResult StatusDavid Monica Mt MDLAB_1Final Result Performing OrganizationAddressCity/State/ZIP CodePhone Number [facility] CLIA: [id number] [address] * (ABNORMAL) Albumin/Creatinine Ratio,Random Urine (06/18/2025 9:42 AM CDT) ComponentValueRef RangeTest MethodAnalysis TimePerformed AtPathologist SignatureAlbumin/Creatinine Ratio, Urine, Random1,258(H)<30 mg/g1 2:48 PM [facility] LABORATORYAlbumin, Urine, Taxsft693.1mg/L1 2:48 PM [facility] LABORATORYCreatinine, Urine, Tmritr20>20 mg/dL mg/dL 06/18/2025 2:48 PM [facility] LABORATORYSpecimen (Source)Anatomical Location / LateralityCollection Method / VolumeCollection TimeReceived Time UrineNon-blood Collection / Jeeqcbe5206/18/2025 9:42 AM CDT1 9:42 AM CDT Narrative Authorizing ProviderResult TypeResult StatusRami Michelle Shabbir MBBSLAB_1Final ResultPerforming OrganizationAddressCity/State/ZIP CodePhone Number [facility] CLIA: [id number] [address] [place] [address] * (ABNORMAL) Lipid Panel and Direct LDL(If Needed) (06/18/2025 9:40 AM CDT) ComponentValueR RangeTest MethodAnalysis TimePerformed AtPathologist KksfoitknRsirwgswkyr570(H)0 - 199 mg/dL06/18/2025 2:05 PM [facility] EMKHHXWYSZGmopbhyjwbje178<=149 mg/dL06/18/2025 2:05 PM [facility] LABORATORYHDL Qavubvakkxj35>=40 mg/dL06/18/2025 2:05 PM [facility] LABORATORYLDL, Upaiylcrhk600<130 mg/dL06/18/2025 2:05 PM [facility] LABORATORYNon HDL Chol, Opgbgnwggv842<=159 mg/dL06/18/2025 2:05 PM CDT [facility]ORATORYCholesterol/HDL Ratio3.7<=5.010/ 2:05 PM T [facility] LABORATORYHours Nnzvxgh88.08 - 12 Hours06/18/2025 2:05 PM T CHECK LABORATORYSpecimen (Source)Anatomical Location / Laterality Collection Method / VolumeCollection TimeReceived TimeBloodVenipuncture / Lrlpwmd5806/18/2025 9:40 AM CDT1 9:40 AM CDT Narrative Authorizing ProviderResult TypeResult StatusGenealysa Martinez Shabbir MBBSLAB_1Final ResultPerforming OrganizationAddressCity/State/ZIP CodePhone Number [facility] CLIA: [id number] [address] [place] [address], [facility] CLIA: [id number] [address] [place] [address] * (ABNORMAL) Basic Metabolic Panel (06/18/2025 9:40 AM CDT)ComponentValueRef RangeTest MethodAnalysis TimePerformed AtPathologist CruntfbnpGqopwy144096 - 145 mmol/L1 2:05 PM [facility] LABORATORYPotassium4.33.5 - 5.1 mmol/L1 2:05 PM [facility] JRENSMJVEAGajeeuqs708(H)98 - 109 mmol/L 06/18/2025 2:05 PM [facility] UHHRXRGWUYXQ24991 - 29 mmol/L1 2:05 PM [facility] LABORATORYAnion Pki627 - 16 mmol/L1 2:05 PM [facility] LABORATORYCalcium9.38.4 - 10.4 mg/dL06/18/2025 2:05 PM [facility] PBCWHFDKEYJMP80(H)7 - 26 mg/dL06/18/2025 2:05 PM [facility] LABORATORYCreatinine3.18(H)0.55 - 1.02 mg/dL06/18/2025 2:05 PM [facility] APNCNPCNPHJrzwtft295(H)70 - 100 mg/dL06/18/2025 2:05 PM [facility] LABORATORYComment:The given reference range is for the fasting state. Non- fasting reference range for glucose is 70 -180 mg/dL.GFR, Liragvmnw97(L)>60 mL/min/1.39p60406/18/2025 2:05 PM [facility] LABORATORYHours Gludxmq49.08 - 12 Hours06/18/2025 2:05 PM [facility] LABORATORYSpecimen (Source)Anatomical Location / LateralityCollection Method / VolumeCollection TimeReceived Time BloodVenipuncture / Tumxrxy8006/18/2025 9:40 AM CDT1 9:40 AM CDT Narrative Authorizing ProviderResult TypeResult StatusNoemy Martinez Shabbir MBBSLAB_1Final ResultPerforming OrganizationAddressCity/State/ZIP CodePhone Number [facility] CLIA: [id number] [address] [place] [address], [facility] CLIA: [id number] [address] [place] [address] * (ABNORMAL) Hgb A1C (06/18/2025 9:40 AM CDT)ComponentValueRef RangeTest Method Analysis TimePerformed AtPathologist SignatureHemoglobin A1C7.1(H)<=5.6 % 06/19/2025 8:23 AM [facility] LABORATORYEstimated Average Glucose (Calc)157< 117 mg/dL06/19/2025 8:23 AM [facility] LABORATORYComment:Estimated average glucose (eAG) converts A1c into glucose units (mg/dL) and estimates average glucose over the past approximately 3 months. The eAG reference interval (<117 mg/dL) corresponds to an A1c of <5.7%.Specimen (Source)Anatomical Location / LateralityCollection Method / VolumeCollection TimeReceived TimeBloodVenipuncture / Htiwagg8006/18/2025 9:40 AM CDT1 9:40 AM CDT Narrative [facility] - 06/19/2025 8:23 AM CDT For patients not previously diagnosed with diabetes: 5.7-6.4%: Increased risk for diabetes 6.5% and greater: Diagnostic for diabetes For patients diagnosed with diabetes: <8.0%: Goal of therapy for ages 18-75 Clinicians may recommend a higher or lower goal for specific individuals. Authorizing ProviderResult TypeResult StatusGenealysa Martinez Sharonvijayalberto LASSITERBSLAB_1Final ResultPerforming OrganizationAddressCity/State/ZIP CodePhone Number [facility] CLIA: [id number] [address] * (ABNORMAL) TP/Crea Ratio, Urine (Expected: 4 months) (06/07/2025 1:37 PM CDT) ComponentValueRef RangeTest MethodAnalysis TimePerformed AtPathologist SignatureTP/Creat Ratio, Urine Random1.61(H)0.00 - 0. 4:28 PM CDT [facility] LABORATORYTotal Protein, Urine, Tjrycg1237 - 14 mg/dL 06/07/2025 4:28 PM [facility] LABORATORYCreatinine, Urine, Ejcwva41 >20 mg/dL mg/dL06/07/2025 4:28 PM [facility] LABORATORYSpecimen (Source)Anatomical Location / LateralityCollection Method / VolumeCollection TimeReceived TimeUrineNon-blood Collection / Neebdxw1606/07/2025 1:37 PM CDT 06/07/2025 1:37 PM CDT [facility] - 06/07/2025 4:28 PM CDT Low urine creatinine values coupled with low urine protein values can artifactually increase the urine protein/creatinine results. Correlate results of ratio with creatinine results. Authorizing ProviderResult TypeResult StatusValeria Mathews APRN, CNPLAB_1Final ResultPerforming OrganizationAddressCity/State/ZIP CodePhone Number [facility] CLIA: [id number] [address] [place] [address] * Vitamin D 25-Hydroxy, Total (Expected: 4 months) (06/07/2025 1:28 PM CDT) ComponentValueRef RangeTest MethodAnalysis TimePerformed AtPathologist SignatureVitamin D, 25-OH, Idgxw8617 - 80 ng/mL06/07/2025 5:01 PM [facility] LABORATORYSpecimen (Source)Anatomical Location / LateralityCollection Method / VolumeCollection TimeReceived TimeBloodVenipuncture / Unknown 06/07/2025 1:28 PM CDT1 1:28 PM CDT Narrative Authorizing ProviderResult TypeResult StatusVanmeraryandre Reid LOCO CNPLAB_1Final ResultPerforming OrganizationAddressCity/State/ZIP CodePhone Number [facility] CLIA: [id number] [address] * (ABNORMAL) Renal Function Panel (Expected: 4 months) (06/07/2025 1:28 PM CDT) ComponentValueRef RangeTest MethodAnalysis TimePerformed AtPathologist JchsttjunEkatug228552 - 145 mmol/L1 5:16 PM [facility] Potassium4.23.5 - 5.1 mmol/L1 5:16 PM [facility] Iytvmmxz57556 - 109 mmol/L1 5:16 PM [facility] ZZIQCDBWFFHQ88753 - 29 mmol/L1 5:16 PM [facility] LABORATORYAnion Ipd431 - 16 mmol/L 06/07/2025 5:16 PM [facility] LABORATORYCalcium9.78.4 - 10.4 mg/dL 06/07/2025 5:16 PM [facility] ZGHAMTSVKSQDL59(H)7 - 26 mg/dL06/07/2025 5:16 PM [facility] LABORATORYCreatinine2.84(H)0.55 - 1.02 mg/dL06/07/2025 5:16 PM [facility] LABORATORYAlbumin3.63.5 - 5.0 g/dL06/07/2025 5:16 PM [facility] LABORATORYPhosphorus4.12.3 - 4.7 mg/dL06/07/2025 5:16 PM [facility] XHENIWRNECOmzpiux845(H)70 - 100 mg/dL06/07/2025 5:16 PM [facility] LABORATORYComment:The given reference range is for the fasting state. Non-fasting reference range for glucose is 70 -180 mg/dL.GFR, Estimated 17(L)>60 mL/min/1.88m29106/07/2025 5:16 PM [facility] LABORATORYHours Fasting 0.08 - 12 Hours06/07/2025 5:16 PM CDGO[facility] LABORATORYSpecimen (Source) Anatomical Location / LateralityCollection Method / VolumeCollection Time Received TimeBloodVenipuncture / Vpvijpz4906/07/2025 1:28 PM CDT1 1:28 PM CDT Narrative Authorizing ProviderResult TypeResult StatusValeria Mathews APRN, CNPLAB_1Final ResultPerforming OrganizationAddressCity/State/ZIP CodePhone Number [facility] CLIA: [id number] [address] [place] [address] * (ABNORMAL) Intact PTH (Expected: 4 months) (06/07/2025 1:28 PM CDT)Component ValueRef RangeTest MethodAnalysis TimePerformed AtPathologist SignatureIntact AWJ898(H)10 - 100 pg/mL06/07/2025 4:48 PM CD[facility] Specimen (Source)Anatomical Location / LateralityCollection Method / Volume Collection TimeReceived TimeBloodVenipuncture / Hulggcl9406/07/2025 1:28 PM CDT 06/07/2025 1:28 PM CDT Narrative Authorizing ProviderResult TypeResult StatusValeria Mathews APRN CNPLAB_1Final ResultPerforming OrganizationAddressCity/State/ZIP CodePhone Number [facility] CLIA: [id number] [address] * Hemoglobin, Blood (Expected: 4 months) (06/07/2025 1:28 PM CDT)ComponentValue Ref RangeTest MethodAnalysis TimePerformed AtPathologist SignatureHemoglobin 14.412.0 - 15.5 g/dL06/07/2025 1:37 PM [facility] LABORATORYSpecimen (Source)Anatomical Location / LateralityCollection Method / VolumeCollection TimeReceived TimeBloodVenipuncture / Iykivay5206/07/2025 1:28 PM CDT1 1:28 PM CDT Narrative Authorizing ProviderResult TypeResult StatusValeria Mathews APRN, CNPLAB_1Final ResultPerforming OrganizationAddressCity/State/ZIP CodePhone Number [facility] CLIA: [id number] [address] [place] [address] * Skin Biopsy (05/31/2025 1:28 PM CDT) Narrative EXTERNAL RESULTS - 05/31/2025 1:28 PM CDT Type of biopsy: tangential Informed consent: discussed and consent obtained ?? Timeout: patient name, date of , surgical site, and procedure verified ?? Anesthesia: the lesion was anesthetized in a standard fashion ?? Anesthetic: ??1% lidocaine w/ epinephrine 1-100,000 local infiltration Instrument used: flexible razor blade ?? Outcome: patient tolerated procedure well ?? Post-procedure details: sterile dressing applied and wound care instructions given ?? Dressing type: petrolatum ?? Authorizing ProviderResult TypeResult StatusJosepierre Gallegos MDDERM PROCEDURE ORDERABLESFinal ResultPerforming OrganizationAddressCity/State/ZIP CodePhone Number EXTERNAL RESULTS * Surgical Path, Dermatology (05/31/2025 1:28 PM CDT)ComponentValueRef RangeTest MethodAnalysis TimePerformed AtPathologist SignatureCase ReportSurgical Pathology Report ? Case: [id number] ? Authorizing Provider: ??Jose Cruz Gallegos MD ? Collected: ? 05/31/2025 1328 ? Ordering Location: ? [facility] ? Received: ?06/01/2025 0840 ? Pathologist: ? Deborah Daniel MD ? Specimen: ?Skin, Right Chin ? 06/06/2025 5:31 [address]TST[address] [facility] DERMATOLOGY LABFINAL DIAGNOSISA. Skin, Right Chin, shave: - Basal cell carcinoma, nodular and micronodular patterns, extending to the base of the specimen.06/06/2025 5:[address] [facility] at 1731 CDTClinical InformationClinical Impression: 7 mm pink papule with white lines on dermoscopy DDX: BCC vs nevus vs bite reaction vs cutaneous lymphome 06/06/2025 5:[address]TST[address] [facility] DERMATOLOGY LABMicroscopic Description Microscopic examination is performed.06/06/2025 5:[address]TST[address] [facility] DERMATOLOGY LABTechnical InformationA portion of the technical staining was performed at [facility], [address] [place] [address]. 06/06/2025 5:31 [address]TST[address] [facility] DERMATOLOGY LABGross DescriptionA: Received in formalin, labeled with the patient's name and Skin, Right Chin is a 7 x 7 x 1 mm shave of skin. The specimen is marked with green ink, bisected, and submitted entirely in one cassette. TV 06/06/2025 5:[address] [facility] DERMATOLOGY LABEmbedded Images 06/06/2025 5:[address]TST[address] [facility] DERMATOLOGY LABSpecimen (Source) Anatomical Location / LateralityCollection Method / VolumeCollection Time Received TimeSkin (Skin)05/31/2025 1:28 PM CDT1 8:40 AM CDTComment: Clinical Impression: 7 mm pink papule with white lines on dermoscopy DDX: BCC vs nevus vs bite reaction vs cutaneous lymphome Narrative Authorizing ProviderResult TypeResult StatusJoseph Andre ROE PATHOLOGY Final ResultPerforming OrganizationAddressCity/State/[facility] CodePhone Number [place] [address] D[facility] LAB CLIA: [id number] [address] * Destruction of lesion (05/31/2025 1:24 PM CDT) Narrative EXTERNAL RESULTS - 05/31/2025 1:24 PM CDT Complexity: simple Destruction method: cryotherapy ?? Informed consent: discussed and consent obtained ?? Lesion destroyed using liquid nitrogen: Yes ?? Region frozen until ice ball extended beyond lesion: Yes ?? Cryotherapy cycles: ??1 Outcome: patient tolerated procedure well with no complications ?? Additional details: ??Post op wound care provided. Authorizing ProviderResult TypeResult StatusJoseph A El MDDERM PROCEDURE ORDERABLESFinal ResultPerforming OrganizationAddressCity/State/ZIP CodePhone Number EXTERNAL RESULTS * TOLU (DIABETIC EYE EXAM) (04/05/2025) Narrative Authorizing ProviderResult TypeResult StatusInterface Provider MDDUMMY/OTHER/AR Final Result * DEXA Bone Density Spine/Hip (07/28/2019 3:11 PM [facility])Anatomical Region LateralityModalityLower Extremity, Spine, Hip, L-SpineRadiographic Imaging Specimen (Source)Anatomical Location / LateralityCollection Method / Volume Collection TimeReceived Time Narrative 08/02/2019 10:43 AM [facility] DXA REPORT Patient Name: ??Chelsey Mosley [place]: ??Jemima Tyler MD Densitometer: ??Hologic Horizon W (S/N [id number]) RCUKER BONE OSTEOPOROSIS RISK FACTORS FROM PATIENT QUESTIONNAIRE: ?? The patient is a 69 y.o.female: ??Estrogen deficient since menopause about 14 years ago, inadequate calcium vitamin-D intake, a past 24 year history of cigarette smoking. BONE MINERAL DENSITY: Lumbar Spine Vertebrae Included: L1;L2 Bone Mineral Density (gm/cm2): 1.002 T-Score: 0.2 Z-Score: 2.2 L3 and L4 were excluded from the analysis because their bone density measurements are much greater than the other vertebrae, which is probably due to degenerative sclerotic changes. Total Hip Bone Mineral Density (gm/cm2): 0.87 T-Score: -0.6 Z-Score: 0.9 Femoral Neck Bone Mineral Density (gm/cm2): 0.696 T-Score: -1.4 Z-Score: 0.4 FRAX 10 year probability major osteoporotic fracture: 11.7% 10 year probability hip fracture: 1.8% Fracture risk is based on bone density, age, ethnicity, and other BMD-independent risk factors noted from the questionnaire and the FRAX score, if available. ??See different fracture risk categories below under definitions. ASSESSMENT: Mild low bone density based on lowest T-score which is at femoral neck. ?? However the bone density is normal at the spine and hip. ??Compared to prior study of 05/09/2010, bone density has declined by 9% at the spine and by 9.8% at the hip. ??Nevertheless fragility fracture risk is only mildly increased. RECOMMENDATIONS: 1. Optimize daily intake of calcium and vitamin-D. 2. Consider repeating a bone density in 6 years or sooner if the patient develops additional significant risk factors for bone loss or fracture. Definitions (T-Score = Standard deviations above/below mean peak adult) (Z-Score = Standard deviations above/below mean age/sex-matched peers) ISCD Standards: ??For a more accurate fracture risk assessment, reference data is used for all ethnic groups and the 1/3 region is reported for the forearm. WHO DEFINITIONS: Normal BMD: T-score ? -1.0 Osteopenia: T-score between -1.0 and -2.5 Osteoporosis: T-score ? -2.5 FRAX Score : ??The FRAX?? algorithms give the 10-year probability of fracture. The output is a 10-year probability of hip fracture and the 10-year probability of a major osteoporotic fracture (clinical spine, forearm, hip or shoulder fracture). ?? The FRAX score takes into account the bone density, but also age, gender, weight, height, previous fracture, parental hip fracture, smoking status, glucocorticoid intake, history of RA, secondary osteoporosis, and high alcohol intake in determining fracture risk in patients with osteopenia and osteoporosis. FRAX and Fracture Risk Categories in terms of major osteoporotic fracture risk (clinical spine, forearm, hip, or shoulder): < 10% = low fracture risk ? 10% and <15% = mildly increased fracture risk ? 15% and <20% = moderately increased fracture risk ? 20% and <30% = high fracture risk ? 30% ?= ?very high fracture risk A clinician may consider FDA-approved medical therapies in postmenopausal women and men aged 50 years and older, if one or more of the following is present (clinical correlation required and therapy may not always be indicated): 1. ??The patient has a hip or vertebral (clinical or morphometric) fracture. 2. ??T-score ? -2.5 at the femoral neck, hip, or spine after appropriate evaluation to exclude secondary causes. 3. ??Low bone mass (T-score between -1.0 and -2.5 at the femoral neck, hip or spine) and a 10-year probability of a hip fracture ? 3% or a 10-year probability of a major osteoporosis-related fracture ? 20% based on the FRAX scores. 4. ??Clinicians judgment and/or patient preferences may result in a decision to patients with 10-year fracture probabilities above or below these levels. Authorizing ProviderResult TypeResult Wojciech Jonas MDRAD DEXAFinal Result * Hepatitis C Antibody, with Reflex (06/11/2019 9:59 AM CDT)ComponentValueRef RangeTest MethodAnalysis TimePerformed AtPathologist SignatureHepatitis C AntibodyNegative (Non Reactive)Negative (Non Reactive)06/11/2019 4:42 PM CDT [facility]ORATORYComment:Antibodies to HCV not detected. Does not exclude the possiblity of exposure to HCV.Specimen (Source)Anatomical Location / LateralityCollection Method / VolumeCollection TimeReceived TimeBlood Venipuncture / [id number]/11/2019 9:59 AM CDT1 9:59 AM CDT Narrative Authorizing ProviderResult TypeResult Wojciech Jonas MDLAB_1Final Result Performing OrganizationAddressCity/State/ZIP CodePhone Number [facility] [address] [place] [address], [facility] from Last 3 Months or Most Recently Relevant to Health Maintenance Insurance * Guarantor: Chelsey Mosley TypeRelation to PatientDate of BirthPhone Billing Address[facility]/[place] [id number] [place] [address] Advance Directives TypeDate RecordedPatient RepresentativeExplanationAdvance Directive/Living Will/Durable Power of Attny on file/POLST PN Care Teams Team MemberRelationshipSpecialtyStart [place] [address] [place] [address] PCP - GeneralFacaly Aucmlruh36/10/24
--- NOTE | 2025-08-27 08:57 | ED.GENADULT ---
HPI - General Adult General Date Seen: 08/27/25 Chief complaint: Abdominal Pain Stated complaint: sharp abdominal pain Time Seen by Provider: 08/27/25 07:59 History of Present Illness HPI narrative: 75-year-old female with a history hypertension, dyslipidemia, diabetes, chronic kidney disease (most recent creatinine in our system was 3.0 on 06/01/2023), diabetic neuropathy. She does have history of chronic renal failure but has never been symptomatic from it. She has met with her doctors at [facility] and was referred at 1.2 the [facility] system. Since she was relatively stable and doing well with chronic reflux she has not moved forward with any plans for transplant or dialysis. If her kidneys ever shut down she would want dialysis and/or transplant. She has no previous abdominal surgeries. She has been having a fairly diffuse abdominal pain for the past 3 or 4 days. It is generalized. It is continuous but sometimes it gets worse. It got much more worse overnight and she now feels more achy and pain. She was having so much discomfort he was not able to sleep. She has been nauseous. No vomiting. No diarrhea. She did have a small, incontinent bowel movement overnight. Normal urine output. No dysuria, urgency, frequency. No fever. She is so uncomfortable that she could not sleep last night so she came here to the ER this morning. She does not have any history of similar pain. Related Data Home Medications ?Medication ?Instructions ?Recorded ?Confirmed simvastatin 40 mg tablet (Zocor) 40 mg PO HS 06/01/23 08/27/25 acetaminophen 500 mg tablet 1,000 mg PO DAILY 08/27/25 08/27/25 empagliflozin 10 mg tablet 10 mg PO DAILY 08/27/25 08/27/25 (Jardiance) insulin aspar prot-insulin aspart 28 - 30 unit subcut BIDWM 08/27/25 08/27/25 100 unit/mL (70-30) subcutaneous pen (Novolog Mix 70-30FlexPen U-100) latanoprost 0.005 % eye drops 1 drp ophthalmic (eye) HS 08/27/25 08/27/25 lisinopril 40 mg tablet 40 mg PO DAILY 08/27/25 08/27/25 multivitamin (Daily Multi-Vitamin 1 tab PO DAILY 12/27/25 12/27/25 tablet) omega 4-eia-nlt-fish oil 1,000 mg 1 cap PO DAILY 08/27/25 08/27/25 (120 mg-180 mg) capsule (Fish Oil) semaglutide 0.25 mg or 0.5 mg (2 0.5 mg subcut Q7D 08/27/25 08/27/25 mg/3 mL) subcutaneous pen injector (Ozempic) Allergies Allergy/AdvReac Type Severity Reaction Status Date / Time No Known Drug Allergies Allergy Verified 08/27/25 11:10 [facility] Medical History (Updated 08/27/25 @ 11:13 by Bronson Blackman MD) Renal insufficiency ?N28.9 - Disorder of kidney and ureter, unspecified (ICD-10) Dyslipidemia ?E78.5 - Hyperlipidemia, unspecified (ICD-10) Chronic kidney disease, stage 4 (severe) ?N18.4 - Chronic kidney disease, stage 4 (severe) (ICD-10) Diabetic neuropathy ?E11.40 - Type 2 diabetes mellitus with diabetic neuropathy, unspecified (ICD-10) 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 Alert. Conversant. Looks uncomfortable HENT: Head: Atraumatic. Nose: Nose normal. Mouth/Throat: Oral mucosa is clear . Mucous membranes are dry but not desiccated or cracked. no trismus. Pharynx normal. Tonsils symmetric. No tonsillar enlargement, erythema, or exudate. Eyes: Conjunctivae normal. EOM normal. Pupils equal, round, and reactive to light. No scleral icterus. Neck: Normal range of motion. Neck supple. No tracheal deviation present. Cardiovascular: Normal rate, regular rhythm. No gallop. No friction rub. No murmur heard. Symmetric radial artery pulses Pulmonary/Chest: Effort normal. No stridor. No respiratory distress. No wheezes. No rales. No rhonchi . No tenderness. Abdominal: Soft. Bowel sounds normal. No distension. No mass. Left lower quadrant> right lower quadrant and suprapubic> right upper quadrant tenderness. No CVA tenderness. No rebound. Left lower quad guarding. Musculoskeletal: RUE: Normal range of motion. No tenderness. No deformity LUE: Normal range of motion. No tenderness. No deformity RLE: Normal range of motion. No edema. No tenderness. No deformity LLE: Normal range of motion. No edema. No tenderness. No deformity Neurological: Alert and oriented to person, place, and time. Normal strength. CN II-VII intact. No sensory deficit. GCS eye subscore is 4. GCS verbal subscore is 5. GCS motor subscore is 6. Normal coordination Skin: Skin is warm and dry. No rash noted. No pallor. Normal capillary refill. Psychiatric: Normal mood. Normal affect. Const: Vital Signs, click to edit/add: Vital Signs - 24 hr 08/27/25 07:27 08/27/25 08:58 08/27/25 09:44 Temperature 98.5 F Pulse Rate Pulse Rate [Pulse Oximeter] 94 88 Respiratory Rate 18 16 Blood Pressure 136/64 Blood Pressure [Ri ght Upper Arm] 97/61 124/78 Pulse Oximetry 93 96 Oxygen Delivery Me thod Room Air Room Air 08/27/25 09:52 08/27/25 10:00 Temperature Pulse Rate 86 88 Pulse Rate [Pulse Oximeter] Respiratory Rate Blood Pressure Blood Pressure [Ri ght Upper Arm] Pulse Oximetry 95 93 Oxygen Delivery Me thod Course Course ED Course: Recheck-watching TV with her . Still having some pain but feeling quite a bit better after pain meds. A little bit drowsy now after pain meds. On repeat exam still quite tender but not peritoneal. Vital Signs Vital signs: Initial Vital Signs Temperature 98.5 F 08/27/25 07:27 Temperature Source Temporal Artery Scan 08/27/25 07:27 Pulse Rate 94 08/27/25 07:27 Respiratory Rate 18 08/27/25 07:27 Blood Pressure 97/61 08/27/25 07:27 Blood Pressure Mean 73 08/27/25 07:27 Pulse Oximetry 93 08/27/25 07:27 Oxygen Delivery Method Room Air 08/27/25 07:27 Vital Signs Temperature 98.5 F 08/27/25 07:27 Pulse Rate 94 08/27/25 07:27 Respiratory Rate 18 08/27/25 07:27 Blood Pressure 97/61 08/27/25 07:27 Pulse Oximetry 93 08/27/25 07:27 Oxygen Delivery Method Room Air 08/27/25 07:27 Temperature 98.5 F 08/27/25 07:27 Pulse Rate 88 08/27/25 10:00 Respiratory Rate 16 08/27/25 09:44 Blood Pressure 124/78 08/27/25 09:44 Pulse Oximetry 93 08/27/25 10:00 Oxygen Delivery Method Room Air 08/27/25 09:44 Medications Administered Medications: Generic Name Dose Route Start Last Admin Trade Name Freq PRN Reason Stop Dose Admin Hydromorphone HCl 0.5 mg 08/27/25 09:12 08/27/25 09:53 Hydromorphone 0.5 Mg/0.5 Ml Inj IVP 0.5 mg Q1H PRN Administration Pain Discontinued Medications Generic Name Dose Route Start Last Admin Trade Name Freq PRN Reason Stop Dose Admin Sodium Chloride 1,000 mls @ 1,000 mls/hr 08/27/25 09:15 08/27/25 10:52 0.9 % Sodium Chloride 1000 Ml IV 08/27/25 10:14 Infused .Q1H MADONNA Infusion Ceftriaxone Sodium 1 gm/ 100 mls @ 200 mls/hr 08/27/25 10:54 08/27/25 12:07 Sodium Chloride IVPB 08/27/25 11:23 Infused ONCE ONE Infusion Metronidazole 500 mg in 100 mls @ 100 mls/hr 08/27/25 10:55 08/27/25 12:07 Metronidazole IVPB 08/27/25 11:54 Infused ONCE ONE Infusion Ondansetron HCl 4 mg 08/27/25 09:12 08/27/25 09:53 Ondansetron 2 Mg/Ml Inj IVP 08/27/25 09:13 4 mg ONCE ONE Administration Medical Decision Making MDM Narrative Medical decision making narrative: Presented to the Emergency Department with a few days of generalized, mostly periumbilical left lower quadrant abdominal pain. The differential diagnosis of abdominal pain includes: Appendicitis, Bowel Obstruction, Ulcer, Ischemia, Cholecystitis, Diverticulitis, Pancreatitis, UTI, kidney stone, Enteritis/Colitis, amongst many other etiologies. Laboratory workup shows marked leukocytosis. Fortunately the patient is hemodynamically stable, not tachycardic, febrile. Venous lactic acid is normal. No clear evidence for sepsis physiology. Because of chronic renal failure, noncontrast CT scan is obtained. CT scan does show evidence for acute uncomplicated sigmoid diverticulitis. Started on IV Rocephin and Flagyl. Urinalysis also is abnormal with pyuria and hematuria indicative for probable UTI. Urine cultures pending but presumably urine infection would be covered by the IV Rocephin. No clear evidence for obstructing kidney stone, hydronephrosis, perinephric abscess . Laboratory workup shows chronic renal failure. Previous baseline creatinine in our system was from June 2023 and at that point was 3.0. Today it is up 3.7. Per patient report she has a known history of chronic renal failure is [facility] and has been referred to a concrete buster operator the you, your to ago. At that time it was determined that she had stable kidney function and did not need to proceed with dialysis or transplant. If her kidneys got worse then they would go ahead with needed therapies. I suspect that her creatinine of 3.7 is probably an acute renal insult superimposed on her chronic renal illness. Suspect is probably due to dehydration from her current illnesses (diverticulitis and UTI). At this point there is no signs of acute fluid overload, pulmonary edema, hyperkalemia or other indication for immediate dialysis. However patient will need careful monitoring and I think she is at high risk to deteriorate into renal failure needing dialysis. My recommendation would be hospitalization for IV antibiotics, fluids, lab monitoring. Discussed with our hospitalist, Dr. Beth, at about 10:50 a.m. who accepts. Patient will be boarding here in the ER until a hospitalist bed on the medical floor can be arranged. There may be some delay in admission because of currently the hospital since this is full. Incidentally; CT scan shows multiple exophytic renal lesions as well as a 2.5 cm left adrenal nodule. Patient will need outpatient follow-up for these lesions, with her primary care provider for further imaging. Lab Data Labs: Lab Results 08/27/25 08/27/25 Range/Units 09:30 09:35 WBC 28.61 H* (4.50-11.00) K/uL RBC 4.42 (4.00-5.20) m/uL Hgb 13.8 (12.0-16.0) gm/dL Hct 45.1 (33.0-51.0) % MCV 102 H (80-100) fL MCH 31 (26-34) pg MCHC 31 L (32-36) gm/dL RDW Coeff of Cierra 14.4 (11.5-15.5) % Plt Count 355 (140-440) K/uL Neut % (Auto) 86.2 H (42.0-72.0) % Lymph % (Auto) 5.9 L (20-44) % Bradford % (Auto) 7.3 (0.0-11.0) % Eos % (Auto) 0.0 (0.0-7.0) % Baso % (Auto) 0.2 (0.0-3.0) % Neut # (Auto) 24.70 H (1.7-7.0) K/uL Lymph # (Auto) 1.70 (0.90-2.90) K/uL Bradford # (Auto) 2.10 H (0.00-0.90) K/UL Eos # (Auto) 0.00 (0.00-0.50) K/uL Baso # (Auto) 0.10 (0.00-0.30) K/uL Abs Immat Gran (auto) 0.10 (0.00-0.30) K/uL Imm/Tot Granulo (auto) 0.4 % Diff Slide Review Acceptable Review (Acceptable) Sodium 140 (135-149) mmol/L Potassium 4.9 (3.6-5.1) mmol/L Chloride 107 (96-114) mmol/L Carbon Dioxide 18 L (20-32) mmol/L Anion Gap 15 (7-15) mEq/L BUN 55 H (7-30) mg/dL Creatinine 3.7 H (0.5-1.5) mg/dL Estimated Creat Clear 11.17 Estimated GFR 12 ml/min Glucose 126 H (60-115) mg/dL Lactate 1.7 (0.5-1.9) mmol/L Calcium 9.4 (8.4-10.6) mg/dL Total Bilirubin 0.9 (0.1-1.5) mg/dL AST 44 H (12-35) U/L ALT 68 H (4-35) U/L Alkaline Phosphatase 111 (40-150) U/L Total Protein 7.0 (6.0-8.3) g/dL Albumin 3.9 (3.3-5.0) g/dL Lipase 29 (23-300) U/L Urine Color Yellow (Yellow) Urine Appearance Cloudy A (Clear) Urine pH 5.5 (5.0-8.5) Ur Specific [place] 1.025 (1.000-1.030) Urine Protein 3+ A (Negative) Urine Glucose (UA) 1+ A (Negative) Urine Ketones Trace A (Negative) Urine Blood 2+ A (Negative) Urine Nitrite Negative (Negative) Urine Bilirubin Negative (Negative) Urine Urobilinogen 0.2 (0.2-1.0) Ur Leukocyte Esterase 1+ A (Negative) Urine RBC 2-5 A (0-2) Urine WBC 50-100 A (0-5) Ur Squamous Epith Cells Few (None-Few) Urine Bacteria Many A (None) Discharge Plan Discharge Clinical Impression: Diverticulitis, Acute UTI, Chronic renal failure, Kidney lesion, [place], bilateral, Adrenal nodule Patient Disposition: Admitted As Observation
--- NOTE | 2025-08-27 09:12 | CRLHL7_ITS ---
For Patients: As a result of the Century Cures Act, medical imaging exams and procedure reports are released immediately into your electronic medical record. You may view this report before your referring provider. If you have questions, please contact your health care provider. INDICATION: Right upper and right lower quadrant abdominal pain, nausea TECHNIQUE: CT abdomen and pelvis without contrast. COMPARISON: None. FINDINGS: Lower chest: Multiple calcified granulomas. Mild dependent atelectasis. Trace pericardial effusion. Liver: Unremarkable noncontrast appearance. Gallbladder and bile ducts: No stones or inflammation. No biliary dilatation. Pancreas: Mildly atrophic. No peripancreatic inflammation. Spleen: Unremarkable. Adrenal glands: Left adrenal nodule measures approximally 2.5 by 2.0 centimeters (series 2, image 35). Unremarkable right adrenal gland. Kidneys: Atrophic appearance with multiple cortical hypodensities and indeterminate exophytic renal cortical lesions incompletely characterized on noncontrast examination. No hydronephrosis or calculi. GI tract: No extraluminal gas or fluid collection to suggest perforation no evidence of bowel obstruction. There is colonic diverticulosis predominantly involving the sigmoid colon with wall thickening, adjacent fat stranding, and adjacent prominent mesenteric lymph nodes. No evidence of bowel obstruction. Normal appendix. Tiny hiatal hernia. Vasculature: Abdominal aorta is normal in caliber. Moderate atherosclerotic calcification. Lymph nodes: Prominent mesenteric lymph nodes in the left lower quadrant, likely reactive. Peritoneum/Abdominal Wall: Areas of subcutaneous fat infiltration along the anterior abdominal wall may reflect sequelae of subcutaneous injection. No free air or significant free fluid. Pelvis: Decompressed urinary bladder. Calcified uterine fibroids. Bones: No acute or suspicious osseous abnormality. Osseous demineralization. Advanced facet arthropathy in the lower lumbar spine.. IMPRESSION: 1. Acute, uncomplicated sigmoid diverticulitis. 2. Indeterminate left adrenal nodule measuring up to 2.5 centimeters in size, which could be further characterized with outpatient adrenal protocol CT or MRI if clinically indicated. 3. Multiple indeterminate exophytic renal lesions, which could be further evaluated with renal ultrasound. Please note that all CT scans at this facility use dose modulation, iterative reconstruction, and/or weight-based dosing when appropriate to reduce radiation dose to as low as reasonably achievable. Dictated by Cathy Grayson MD @ 08/27/2025 10:26:58 AM (Electronically Signed)
[2025-08-27 09:33] LABS: Appearance Urine Cloudy (Clear)
[2025-08-27 09:41] LABS: Lactate* 1.7 mmol/L (0.5-1.9)
[2025-08-27 09:45] LABS: Hematocrit* 45.1 % (33.0-51.0); Hemoglobin* 13.8 gm/dL (12.0-16.0); Immature Granulocytes Pct Auto 0.4 %; Mean Corpuscular HGB Conc 31 gm/dL (32-36); Mean Corpuscular Hemoglobin 31 pg (26-34); Mean Corpuscular Volume 102 fL (80-100); RDW Coefficient of Variation % 14.4 % (11.5-15.5); Red Blood Count* 4.42 m/uL (4.00-5.20)
[2025-08-27 09:48] LABS: Immature Granulocytes Abs Auto 0.10 K/uL (0.00-0.30); Lymphocytes Absolute Auto 1.70 K/uL (0.90-2.90); White Blood Count* 28.61 K/uL (4.50-11.00)
[2025-08-27 09:49] LABS: Slide Review Reflex Yes
[2025-08-27] MEDS: ONDANSETRON 2 MG/ML inj 4 MG IVP (09:53)
[2025-08-27 09:58] LABS: Albumin* 3.9 g/dL (3.3-5.0); Chloride* 107 mmol/L (96-114); Potassium* 4.9 mmol/L (3.6-5.1); Sodium* 140 mmol/L (135-149)
[2025-08-27 10:01] LABS: Alanine Aminotransferase* 68 U/L (4-35); Alkaline Phosphatase* 111 U/L (40-150); Anion Gap 15 mEq/L (7-15); Aspartate Amino Transferase* 44 U/L (12-35); Bilirubin Total* 0.9 mg/dL (0.1-1.5); Blood Urea Nitrogen* 55 mg/dL (7-30); Calcium* 9.4 mg/dL (8.4-10.6); Carbon Dioxide* 18 mmol/L (20-32); Creatinine* 3.7 mg/dL (0.5-1.5); Est. Creatinine Clearance* 11.17; Estimated Glomerular Filt Rate 12 ml/min; Glucose* 126 mg/dL (60-115); Total Protein* 7.0 g/dL (6.0-8.3)
[2025-08-27] MEDS: metroNIDAZOLE 500 MG/100 ML PIGGYBACK 100 MG IVPB (11:09)
[2025-08-27] MEDS: cefTRIAXone 1 GM in 0.9 % SODIUM CHLORIDE Mini-bag 100 ML IVPB (11:09)
[2025-08-27 11:10] LABS: Slide Review Acceptable Review (Acceptable)
--- NOTE | 2025-08-27 13:54 | PM.IMHP1 ---
Assessment and Plan Assessment and plan (1) Diverticulitis: Problem comment: Acute sigmoid diverticulitis. First episode. Treat with ertapenem 500 mg daily Status: Acute (2) Acute UTI: Problem comment: Pyuria on UA. No symptoms. On ertapenem for diverticulitis Status: Acute (3) Stage 5 chronic kidney disease: Problem comment: On 06/18/2025 her creatinine was 3.2. On admission here her creatinine is 3.7. CO2 is 18 and potassium is 4.9. Follow labs closely with acute illness. Status: Acute (4) Adrenal nodule: Problem comment: Incidentally found on CT. Outpatient follow-up Status: Acute (5) Kidney lesion, [place], bilateral: Problem comment: Incidentally found on CT. Outpatient follow-up Status: Acute (6) Hypertension: Problem comment: On lisinopril 40 mg daily. Continue this if blood pressure and potassium allow Status: Acute (7) Diabetes mellitus: Problem comment: Continue home insulin and add sliding scale insulin. Status: Acute (8) Cognitive impairment: Problem comment: Primary care provider initiated evaluation 2 weeks ago. Status: Acute Plan 75-year-old female admitted to the hospital with abdominal pain due to acute diverticulitis. She does have pyuria but this may be secondary to diverticulitis rather than her primary problem. Await urine culture and clinical course. Treat with ertapenem for diverticulitis. Continue to evaluate and manage other medical problems including stage 5 chronic kidney disease Total Time Spent Total Time Spent: Total time spent today is 75 minutes in reviewing outside records, coordination of care, discussion with patient and other providers ongoing management of above medical problems Hospitalist- H&P: HPI History of Present Illness Date Seen: 08/27/25 Chief complaint: sharp abdominal pain Narrative: Chelsey Mosley is a 75 year old female with hypertension, diabetes mellitus, stage 4-5 chronic kidney disease and cognitive impairment admitted through the emergency department with 3 or 4 days of lower abdominal pain. Is progressively getting worse. Last night she was unable to sleep due to the pain. She has had nausea and last of appetite. She has been able to drink fluids. She had a normal bowel movement yesterday. She reports urinating more frequently than usual but otherwise normal. She has had no fever. No previous history of diverticulitis or previous abdominal surgeries. No previous hospitalizations. Review of Systems Narrative: Other than her abdominal pain she reports she has been doing well recently. [facility] Medical History (Updated 08/27/25 @ 14:46 by Chase Allen MD) Cognitive impairment ?R41.89 - Other symptoms and signs involving cognitive functions and awareness (ICD-10) Stage 5 chronic kidney disease ?N18.5 - Chronic kidney disease, stage 5 (ICD-10) Renal insufficiency ?N28.9 - Disorder of kidney and ureter, unspecified (ICD-10) Dyslipidemia ?E78.5 - Hyperlipidemia, unspecified (ICD-10) Chronic kidney disease, stage 4 (severe) ?N18.4 - Chronic kidney disease, stage 4 (severe) (ICD-10) Diabetic neuropathy ?E11.40 - Type 2 diabetes mellitus with diabetic neuropathy, unspecified (ICD-10) 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 She has no children. Jorge is healthcare power of tax attorney. Code status is DNR. She does not smoke. She does not drink alcohol. She reports no difficulties with mobility in the home. 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 What is your current living situation?: I presently have a place to live Problems where you live: no known problems Problems where you live details: N/A In the past 12 months, utilities in danger of being shut off: no In past 12 months, lack of transportation kept you from medical appts, meetings, work, or getting things needed for daily living: no In the past 12 mos, have been you worried that your food would run out before you had money to buy more?: never true In the past 12 mos, the food you bought just didn't last and you didn't have money to buy more?: never true Highest level of school completed/degree received: some college, no degree Smoking Status: Former smoker Second hand tobacco smoke exposure: No How often do you have a drink containing alcohol: never How often do you have six or more drinks on one occasion: Never AUDIT-C Alcohol total score: 0 Non-prescribed substance use: denies use Caffeine: Yes How often does anyone, including family, friends and others, physically hurt you: never How often does anyone, including family, friends and others, insult or talk down to you: never How often does anyone, including family, friends and others, threaten you with harm: never How often does anyone, including family, friends and others, scream or curse at you: never service: No Meds Home Medications and Allergies Home Medications ?Medication ?Instructions ?Recorded ?Confirmed ?Type simvastatin 40 mg tablet (Zocor) 40 mg PO HS 06/01/23 08/27/25 History acetaminophen 500 mg tablet 1,000 mg PO DAILY 08/27/25 08/27/25 History empagliflozin 10 mg tablet 10 mg PO DAILY 08/27/25 08/27/25 History (Jardiance) insulin aspar prot-insulin aspart 28 - 30 unit subcut BIDWM 08/27/25 08/27/25 History 100 unit/mL (70-30) subcutaneous pen (Novolog Mix 70-30FlexPen U-100) latanoprost 0.005 % eye drops 1 drp ophthalmic (eye) HS 08/27/25 08/27/25 History lisinopril 40 mg tablet 40 mg PO DAILY 08/27/25 08/27/25 History multivitamin (Daily Multi-Vitamin 1 tab PO DAILY 08/27/25 08/27/25 History tablet) omega [id number]-fish oil 1,000 mg 1 cap PO DAILY 08/27/25 08/27/25 History (120 mg-180 mg) capsule (Fish Oil) semaglutide 0.25 mg or 0.5 mg (2 0.5 mg subcut Q7D 08/27/25 08/27/25 History mg/3 mL) subcutaneous pen injector (Ozempic) Allergies Allergy/AdvReac Type Severity Reaction Status Date / Time No Known Drug Allergies Allergy Verified 08/27/25 11:10 Exam Narrative: Exam Narrative: She is alert and appears in no distress. She is oriented to her circumstances. She is unable to recall significant past medical history including her medications. Eyes normal. Oropharynx with dry mucous membranes. Neck is supple without mass or adenopathy or tenderness. Respirations are clear to auscultation except for bibasilar occasional crackles. Cardiovascular: S1, S2, regular rate and rhythm. No murmur gallop or rub. Abdomen: Bowel sounds active. Abdomen is soft with moderate left lower quadrant tenderness and voluntary guarding. No mass. No peritonitis. External genitalia normal. Extremities are normal without edema. She has diminished but intact pedal pulses. She has diminished sensation in both feet to soft touch. No ulcerations or skin changes. Const: Vital Signs, click to edit/add: Vital Signs - 24 hr 08/27/25 07:27 08/27/25 08:58 08/27/25 09:44 Temperature 36.9 C Pulse Rate Pulse Rate [Pulse Oximeter] 94 88 Respiratory Rate 18 16 Blood Pressure 136/64 Blood Pressure [Ri ght Upper Arm] 97/61 124/78 Pulse Oximetry 93 96 Oxygen Delivery Me thod Room Air Room Air 08/27/25 09:52 08/27/25 10:00 Temperature Pulse Rate 86 88 Pulse Rate [Pulse Oximeter] Respiratory Rate Blood Pressure Blood Pressure [Ri ght Upper Arm] Pulse Oximetry 95 93 Oxygen Delivery Me thod Documenting provider has reviewed patient's vital signs: yes Hospitalist - H&P: Result Labs Labs: Short CBC 08/27/25 Range/Units 09:35 WBC 28.61 H* (4.50-11.00) K/uL Hgb 13.8 (12.0-16.0) gm/dL Hct 45.1 (33.0-51.0) % Plt Count 355 (140-440) K/uL BMP 08/27/25 09:35 Sodium 140 Potassium 4.9 Chloride 107 Carbon Dioxide 18 L BUN 55 H Creatinine 3.7 H Glucose 126 H Calcium 9.4 Liver Function 08/27/25 Range/Units 09:35 Total Bilirubin 0.9 (0.1-1.5) mg/dL AST 44 H (12-35) U/L ALT 68 H (4-35) U/L Alkaline Phosphatase 111 (40-150) U/L Albumin 3.9 (3.3-5.0) g/dL Urine 08/27/25 Range/Units 09:30 Urine Color Yellow (Yellow) Urine Appearance Cloudy A (Clear) Urine pH 5.5 (5.0-8.5) Ur Specific [place] 1.025 (1.000-1.030) Urine Protein 3+ A (Negative) Urine Glucose (UA) 1+ A (Negative) Imaging CT scan - abdomen: Radiologist's impression: INDICATION: Right upper and right lower quadrant abdominal pain, nausea TECHNIQUE: CT abdomen and pelvis without contrast. COMPARISON: None. FINDINGS: Lower chest: Multiple calcified granulomas. Mild dependent atelectasis. Trace pericardial effusion. Liver: Unremarkable noncontrast appearance. Gallbladder and bile ducts: No stones or inflammation. No biliary dilatation. Pancreas: Mildly atrophic. No peripancreatic inflammation. Spleen: Unremarkable. Adrenal glands: Left adrenal nodule measures approximally 2.5 by 2.0 centimeters (series 2, image 35). Unremarkable right adrenal gland. Kidneys: Atrophic appearance with multiple cortical hypodensities and indeterminate exophytic renal cortical lesions incompletely characterized on noncontrast examination. No hydronephrosis or calculi. GI tract: No extraluminal gas or fluid collection to suggest perforation no evidence of bowel obstruction. There is colonic diverticulosis predominantly involving the sigmoid colon with wall thickening, adjacent fat stranding, and adjacent prominent mesenteric lymph nodes. No evidence of bowel obstruction. Normal appendix. Tiny hiatal hernia. Vasculature: Abdominal aorta is normal in caliber. Moderate atherosclerotic calcification. Lymph nodes: Prominent mesenteric lymph nodes in the left lower quadrant, likely reactive. Peritoneum/Abdominal Wall: Areas of subcutaneous fat infiltration along the anterior abdominal wall may reflect sequelae of subcutaneous injection. No free air or significant free fluid. Pelvis: Decompressed urinary bladder. Calcified uterine fibroids. Bones: No acute or suspicious osseous abnormality. Osseous demineralization. Advanced facet arthropathy in the lower lumbar spine.. IMPRESSION: 1. Acute, uncomplicated sigmoid diverticulitis. 2. Indeterminate left adrenal nodule measuring up to 2.5 centimeters in size, which could be further characterized with outpatient adrenal protocol CT or MRI if clinically indicated. 3. Multiple indeterminate exophytic renal lesions, which could be further evaluated with renal ultrasound.
[2025-08-27] MEDS: ERTAPENEM 0.5 GM in 0.9 % SODIUM CHLORIDE 100 ml 100 ML IVPB (15:30)
[2025-08-27] MEDS: INSULIN PROT/ASP (NOVOLOG 70/30) 100 UNIT/ML 24 UNIT SUBCUT (17:47)
[2025-08-27] MEDS: INSULIN ASPART 100 UNIT/ML SUBCUT (17:47)
[2025-08-27] MEDS: SIMVASTATIN 40 MG TABLET PO (21:14)
[2025-08-27] MEDS: SODIUM CHLORIDE 0.9 % (FLUSH) 10 ML SYRINGE 5 ML IVF (21:15)
[2025-08-27] MEDS: LATANOPROST 0.005% OPHTH 1 DROP EYE-BOTH (21:19)
--- NOTE | 2025-08-27 23:06 | PC.NURSE ---
Nursing Care Hours: [id number] Pt this shift calm and cooperative, alert and oriented. No c/o pain. Low appetite, denies nausea. Ambulating independently.
[2025-08-28] VITALS (7 sets, daily range): BP systolic 99–140; BP diastolic 51–80; PULSE 76–91; RESP 16–20; TEMP 36.3–36.9; O2SAT 90–97
--- NOTE | 2025-08-28 05:49 | PC.NURSE ---
End of Shift Note?[id number]? ? Patient has?been pleasant and cooperative throughout?shift. A&O. VSS. Afebrile.?Patient is?independent in?room. Uses call light appropriately. Call light within reach.?
[2025-08-28 07:31] LABS: Hematocrit* 38.7 % (33.0-51.0); Hemoglobin* 11.9 gm/dL (12.0-16.0); Immature Granulocytes Abs Auto 0.10 K/uL (0.00-0.30); Immature Granulocytes Pct Auto 0.4 %; Lymphocytes Absolute Auto 1.30 K/uL (0.90-2.90); Mean Corpuscular HGB Conc 31 gm/dL (32-36); Mean Corpuscular Hemoglobin 31 pg (26-34); Mean Corpuscular Volume 102 fL (80-100); RDW Coefficient of Variation % 14.7 % (11.5-15.5); Red Blood Count* 3.81 m/uL (4.00-5.20); White Blood Count* 24.96 K/uL (4.50-11.00)
[2025-08-28 07:32] LABS: Slide Review Reflex No
[2025-08-28 08:16] LABS: Chloride* 109 mmol/L (96-114); Sodium* 137 mmol/L (135-149)
[2025-08-28 08:17] LABS: Potassium* 4.7 mmol/L (3.6-5.1)
[2025-08-28 08:19] LABS: Blood Urea Nitrogen* 63 mg/dL (7-30); Creatinine* 3.6 mg/dL (0.5-1.5); Est. Creatinine Clearance* 11.48; Estimated Glomerular Filt Rate 13 ml/min
[2025-08-28 08:20] LABS: Anion Gap 11 mEq/L (7-15); Calcium* 8.4 mg/dL (8.4-10.6); Carbon Dioxide* 17 mmol/L (20-32); Glucose* 127 mg/dL (60-115)
[2025-08-28] MEDS: INSULIN PROT/ASP (NOVOLOG 70/30) 100 UNIT/ML 24 UNIT SUBCUT ×2 (12:36→21:01)
[2025-08-28] MEDS: EMPAGLIFLOZIN 10 MG TABLET PO (12:37)
[2025-08-28] MEDS: SODIUM CHLORIDE 0.9 % (FLUSH) 10 ML SYRINGE 5 ML IVF ×2 (12:37→21:07)
[2025-08-28] MEDS: ERTAPENEM 0.5 GM in 0.9 % SODIUM CHLORIDE 100 ml 100 ML IVPB (15:18)
[2025-08-28] MEDS: LACTATED RINGERS 500 ML 500 ML 125 ML IV (15:21)
--- NOTE | 2025-08-28 15:58 | P.IMPN_ITS ---
Assessment and Plan Assessment and plan (1) Diverticulitis: Problem comment: Acute sigmoid diverticulitis. First episode. Treat with ertapenem 500 mg daily. 08/28/2025: Continue the same for now. White blood cell count 25,000 today, was 29,000 yesterday. Status: Acute (2) Acute UTI: Problem comment: Pyuria on UA. No symptoms. On ertapenem for diverticulitis Status: Acute (3) Stage 5 chronic kidney disease: Problem comment: On 06/18/2025 her creatinine was 3.2. On admission here her creatinine is 3.7. CO2 is 18 and potassium is 4.9. Follow labs closely with acute illness. Status: Acute (4) Adrenal nodule: Problem comment: Incidentally found on CT. Outpatient follow-up Status: Acute (5) Kidney lesion, [place], bilateral: Problem comment: Incidentally found on CT. Outpatient follow-up Status: Acute (6) Hypertension: Problem comment: On lisinopril 40 mg daily. Continue this if blood pressure and potassium allow Status: Acute (7) Diabetes mellitus: Problem comment: Continue home insulin and add sliding scale insulin. Hemoglobin A1c was 7.1 on 06/18/2025 Status: Acute (8) Cognitive impairment: Problem comment: Primary care provider initiated evaluation 2 weeks ago. Status: Acute Plan 1. Continue with current intervention efforts and will ask dietary to assess and recommend 2. IV fluid bolus given what appears to be rising BUN 3. Reviewed impression, plans, recommendations with patient 4. Answered patient's questions 5. Patient agreeable with above stated plans and recommendations Total Time Spent Total Time Spent: 35 minutes Subjective Date Seen: 08/28/25 Interval history: Admission history of present illness: ?75 year old female with hypertension, diabetes mellitus, stage 4-5 chronic kidney disease and cognitive impairment admitted through the emergency department with 3 or 4 days of lower abdominal pain. Is progressively getting worse. Last night she was unable to sleep due to the pain. She has had nausea and last of appetite. She has been able to drink fluids. She had a normal bowel movement yesterday. She reports urinating more frequently than usual but otherwise normal. She has had no fever. No previous history of diverticulitis or previous abdominal surgeries. No previous hospitalizations.? Admission plans and recommendations: ?75-year-old female admitted to the hospital with abdominal pain due to acute diverticulitis. She does have pyuria but this may be secondary to diverticulitis rather than her primary problem. Await urine culture and clinical course. Treat with ertapenem for diverticulitis. Continue to evaluate and manage other medical problems including stage 5 chronic kidney disease? 08/28/2025: Generally improved. Still has abdominal discomfort. Still not interested in eating or drinking much. Tolerating increased activity. Asks when she can go home. Exam Narrative: Exam Narrative: Examine her in her hospital room. Sitting on edge of bed and appears comfortable. Lungs clear to auscultation. Heart tones with regular rhythm. Abdomen with active bowel sounds. Subjective discomfort to palpation without rebound or guarding of abdomen. Independent with transfer, station, gait. No focal motor neurologic deficits. Skin warm, dry, intact. Const: Vital Signs, click to edit/add: Vital Signs - 24 hr 08/27/25 19:00 08/27/25 21:44 08/27/25 23:00 Temperature 36.6 C Pulse Rate [Pulse Oximeter] 89 89 91 Respiratory Rate 18 18 Blood Pressure [Le ft Arm] 126/53 L Blood Pressure [Ri ght Arm] 128/86 Pulse Oximetry 96 89 Oxygen Delivery Me thod Room Air Room Air 08/28/25 03:00 08/28/25 07:00 08/28/25 07:00 Temperature 36.9 C 36.7 C Pulse Rate [Pulse Oximeter] 91 84 84 Respiratory Rate 18 16 16 Blood Pressure [Le ft Arm] 105/62 Blood Pressure [Ri ght Arm] 108/52 L Pulse Oximetry 90 97 Oxygen Delivery Me thod Room Air Room Air 08/28/25 11:00 08/28/25 15:00 08/28/25 15:00 Temperature 36.5 C 36.7 C Pulse Rate [Pulse Oximeter] 77 76 76 Respiratory Rate 16 16 16 Blood Pressure [Le ft Arm] 121/80 99/51 L Blood Pressure [Ri ght Arm] Pulse Oximetry 92 94 Oxygen Delivery Me thod Room Air Room Air Labs Labs: Laboratory Results - last 24 hr 08/27/25 08/28/25 09:35 06:50 WBC 24.96 H RBC 3.81 L Hgb 11.9 L Hct 38.7 MCV 102 H MCH 31 MCHC 31 L RDW Coeff of [place] 14.7 Plt Count 363 Neut % (Auto) 86.7 H Lymph % (Auto) 5.4 L [place] % (Auto) 7.4 Eos % (Auto) 0.0 Baso % (Auto) 0.1 Neut # (Auto) 21.60 H Lymph # (Auto) 1.30 [place] # (Auto) 1.80 H Eos # (Auto) 0.00 Baso # (Auto) 0.00 Abs Immat Gran (auto) 0.10 Imm/Tot Granulo (auto) 0.4 Sodium 137 Potassium 4.7 Chloride 109 Carbon Dioxide 17 L Anion Gap 11 BUN 63 H Creatinine 3.6 H Estimated Creat Clear 11.48 Estimated GFR 13 Glucose 127 H Calcium 8.4 C-Reactive Protein 39.6 H 40.6 H
--- NOTE | 2025-08-28 20:14 | PC.NURSE ---
End of Shift: Patient pleasant and cooperative. Afebrile. Denies pain. Up with SBA. Tolerating regular diet with no nausea or increase in pain. BP decreased this AM, updated MD and lisinopril help.
[2025-08-28] MEDS: SIMVASTATIN 40 MG TABLET PO (21:01)
[2025-08-28] MEDS: LATANOPROST 0.005% OPHTH 1 DROP EYE-BOTH (21:01)
[2025-08-29 03:00] VITALS: BP 108/57; PULSE 78; RESP 18; TEMP 36.4; O2SAT 93
--- NOTE | 2025-08-29 05:52 | PC.NURSE ---
End of shift Note 261 Patient has been pleasant and cooperative throughout shift. VSS. Afebrile. Independent. No pain reported. Patient uses call light appropriately. Call light within reach.
[2025-08-29 06:47] LABS: Hematocrit* 35.3 % (33.0-51.0); Hemoglobin* 11.2 gm/dL (12.0-16.0); Immature Granulocytes Abs Auto 0.10 K/uL (0.00-0.30); Immature Granulocytes Pct Auto 0.4 %; Lymphocytes Absolute Auto 1.80 K/uL (0.90-2.90); Mean Corpuscular HGB Conc 32 gm/dL (32-36); Mean Corpuscular Hemoglobin 31 pg (26-34); Mean Corpuscular Volume 98 fL (80-100); RDW Coefficient of Variation % 14.6 % (11.5-15.5); Red Blood Count* 3.60 m/uL (4.00-5.20); Slide Review Reflex No; White Blood Count* 18.27 K/uL (4.50-11.00)
[2025-08-29 07:00] VITALS: BP 110/57; PULSE 71; RESP 16; TEMP 36.4; O2SAT 93
[2025-08-29 07:02] LABS: Chloride* 111 mmol/L (96-114); Sodium* 140 mmol/L (135-149)
[2025-08-29 07:03] LABS: Potassium* 4.6 mmol/L (3.6-5.1)
[2025-08-29 07:05] LABS: Blood Urea Nitrogen* 74 mg/dL (7-30); Creatinine* 3.7 mg/dL (0.5-1.5); Est. Creatinine Clearance* 11.17; Estimated Glomerular Filt Rate 12 ml/min
[2025-08-29 07:06] LABS: Anion Gap 10 mEq/L (7-15); Calcium* 8.5 mg/dL (8.4-10.6); Carbon Dioxide* 19 mmol/L (20-32); Glucose* 74 mg/dL (60-115)
[2025-08-29] MEDS: EMPAGLIFLOZIN 10 MG TABLET PO (09:21)
[2025-08-29] MEDS: ACETAMINOPHEN 500 MG TABLET 1000 MG PO (09:21)
[2025-08-29] MEDS: SODIUM CHLORIDE 0.9 % (FLUSH) 10 ML SYRINGE 5 ML IVF (09:24)
--- NOTE | 2025-08-29 10:59 | P.DS_ITS ---
DS: Providers Provider Date Seen: 08/29/25 Date of admission: 08/27/25 12:05 Primary care physician: Not a Local Provider Admitting Clinician: Joao Beth MD Consults: Nutrition, OT, PT Attending Physician on discharge: Elida Saenz MD Date of Discharge: 08/29/25 DS: Diagnosis Discharge Diagnosis (1) Diverticulitis: Status: Acute Problem details: - Acute sigmoid diverticulitis, first episode - treated with Ertapenem during stay, slowly advanced diet and had no complaints of pain 08/29, requesting discharge home - discuss f/u colonoscopy with PCP upon discharge (2) Acute UTI: Status: Acute Problem details: - pyuria on UA, + E Coli on culture, unclear if symptomatic, treated with Ertapenem during stay - discharge on Omnicef per culture results (3) Cognitive impairment: Status: Acute Problem details: - recent evaluation ordered by PCP, per has OT appt scheduled 09/05/25 through , patient understands our recommendation to not drive until then - MOCA on 08/29/25 (4) Stage 5 chronic kidney disease: Status: Acute Problem details: - 06/18/2025 her creatinine was 3.2, on admission 08/27, creatinine is 3.7 - no hyperkalemia during stay, HOLDING Lisinopril upon discharge given lower BPs and JACQUES in setting of known CKD - follows with Nephrology (Valeria Mathews of [facility]) (5) Adrenal nodule: Status: Acute Problem details: - incidentally noted on admission CT, per EPIC chart this is known by her Endocrinology team and is nonfunctioning (6) Kidney lesion, [place], bilateral: Status: Acute Problem details: - outpatient f/u (7) Hypertension: Status: Acute Problem details: - BPs low during stay (100s systolic), holding lisinopril upon discharge with close PCP f/u recommended (8) Diabetes mellitus: Status: Acute Problem details: - hemoglobin A1c was 7.1 on 06/18/2025 - blood sugars low during stay with decreased po intake, decreasing her 70/30 to 10U BID upon discharge with close f/u DS: Summary Hospital Course Hospital Course: Amy was admitted to the hospital on 08/27 after presenting to the hospital with abdominal pain and ultimately diagnosed with diverticulitis and an E Coli UTI. Also noted to have mild JACQUES (baseline creatinine 2.5-2.6, in 06/25 creatinine was 3.2; admission creatinine 08/27 was 3.7), normal K. Treated with Ertapenem and slowly advanced diet during stay with resolution of abdominal pain; requesting discharge home on 08/29/25. Noted to have cognitive impairment with MOCA 17/30 during OT visit (per , already has outpatient OT scheduled through [facility] on 09/05/25) Comorbidities with other notable findings above. Followup items for PCP: - Blood sugars (eating less than usual with BG 80-90, DECREASED 70/30 to 10U BID; was on 28-30U BID upon admission) - Creatinine (discharge Creatinine 3.7 with K of 4.6) Status at Discharge Functional status at discharge: independent ambulation Overall status at discharge: patient is progressing back to baseline Time Spent with Patient Time attestation: Total time spent providing and/or coordinating discharge services: Time spent: Greater than 30 minutes Specific discharge activities: Med rec, updates to , collaboration with multidisciplinary team Exam Narrative: Exam Narrative: GEN: Awake and comfortable in bed. Knows where she is and the month, not the year HEENT: EOMIs bilaterally, no scleral icterus CV: RRR, No concerning murmurs R: LCTA bilaterally Ab: Mild distension, tolerates palpation, + bowel sounds throughout Ext: wwp, no concerning edema Skin: No concerning skin lesions or rashes on exposed skin Neuro: No focal deficits, no resting tremor Psych: Cognitive impairment is evident Const: Vital Signs, click to edit/add: Vital Signs - 24 hr 08/28/25 11:00 08/28/25 15:00 08/28/25 15:00 Temperature 97.7 F 98.0 F Pulse Rate [Pulse Oximeter] 77 76 76 Respiratory Rate 16 16 16 Blood Pressure [Le ft Arm] 121/80 99/51 L Blood Pressure [Ri ght Arm] Pulse Oximetry 92 94 Oxygen Delivery Me thod Room Air Room Air 08/28/25 18:19 08/28/25 21:00 08/28/25 23:00 Temperature 97.9 F 97.3 F L Pulse Rate [Pulse Oximeter] 86 78 76 Respiratory Rate 16 20 Blood Pressure [Le ft Arm] Blood Pressure [Ri ght Arm] 116/61 140/79 H 112/59 L Pulse Oximetry 93 96 Oxygen Delivery Me thod Room Air Room Air 08/29/25 03:00 08/29/25 07:00 08/29/25 07:00 Temperature 97.6 F 97.6 F Pulse Rate [Pulse Oximeter] 78 71 71 Respiratory Rate 18 16 16 Blood Pressure [Le ft Arm] Blood Pressure [Ri ght Arm] 108/57 L 110/57 L Pulse Oximetry 93 93 Oxygen Delivery Me thod Room Air Room Air DS: Data Data Completed and Pending Labs on day of discharge: Labs from last 24 hours 08/29/25 06:00 WBC 18.27 H RBC 3.60 L Hgb 11.2 L Hct 35.3 MCV 98 MCH 31 MCHC 32 RDW Coeff of [place] 14.6 Plt Count 390 Neut % (Auto) 84.7 H Lymph % (Auto) 9.7 L [place] % (Auto) 4.7 Eos % (Auto) 0.4 Baso % (Auto) 0.1 Neut # (Auto) 15.50 H Lymph # (Auto) 1.80 [place] # (Auto) 0.90 Eos # (Auto) 0.10 Baso # (Auto) 0.00 Abs Immat Gran (auto) 0.10 Imm/Tot Granulo (auto) 0.4 Sodium 140 Potassium 4.6 Chloride 111 Carbon Dioxide 19 L Anion Gap 10 BUN 74 H Creatinine 3.7 H Estimated Creat Clear 11.17 Estimated GFR 12 Glucose 74 Calcium 8.5 C-Reactive Protein 27.9 H Discharge Plan Discharge Disposition: Home, Self-Care Date of Admission: 08/27/25 12:05 Attending Provider on Discharge: Elida Saenz Primary Care Provider: Provider,Not a Local Condition: Improved Anticipated Discharge Date/Time: 08/29/25 10:38 Discharge Medications: New insulin asp prt-insulin aspart [Novolog Mix 70-30FlexPen U-100] 100 unit/mL (70-30) Insulin Pen 10 unit subcut BIDWM Qty: 15 0RF cefdinir 300 mg capsule 300 mg PO Q12H Qty: 10 0RF Continued simvastatin [Zocor] 40 mg tablet 40 mg PO HS Ozempic 0.25 mg or 0.5 mg (2 mg/3 mL) pen injector 0.5 mg subcut Q7D Patient Comments: saturdays latanoprost 0.005 % drops 1 drp ophthalmic (eye) HS Patient Comments: both eyes Jardiance 10 mg tablet 10 mg PO DAILY multivitamin [Daily Multi-Vitamin] Tablet 1 tab PO DAILY omega 3-vno-beq-fish oil [Fish Oil] 1,000 (120-180) mg capsule 1 cap PO DAILY acetaminophen 500 mg tablet 1,000 mg PO DAILY Held lisinopril 40 mg tablet 40 mg PO DAILY Hold Instructions: Resume on 08/29/25. HOLD until your f/u with Dr. Amor - your blood pressure was lower in the hospital and your creatinine was a little high Discontinued insulin asp prt-insulin aspart [Novolog Mix 70-30FlexPen U-100] 100 unit/mL (70-30) insulin pen 28 - 30 unit SUBCUT BIDWM Patient Comments: 28 units am, 30 units pm Discharge Orders: Discharge Order (Routine); Ordered 08/29/25 Ordered By: Elida Saenz Patient Education: Cefdinir (By mouth), Insulin Aspart Protamine/Insulin Aspart (By injection) (NovoLOG Mix..., Diverticulitis (DC) Additional Instructions: While you were here, you had a urinary tract infection and diverticulitis. We found some memory impairment and the OCCUPATIONAL THERAPY team would like you to follow up with them for further testing. We recommend NO DRIVING until your followup with that team. Medication changes: HOLD YOUR LISINOPRIL (your kidney function has been worse than usual and your blood pressure was also on the low side here). DECREASE YOUR INSULIN to 10U twice per day (ONLY TAKE IT IF YOU ARE EATING). Your blood sugars were on the low side here. CONTINUE antibiotics for your UTI (twice/day for 5 more days). This was sent to [facility]. Work on eating regularly (soft, bland foods for the next 2 weeks) and discuss a followup plan for possible colonoscopy with Dr. Amor. Activity Level: Activity as Tolerated Diet Detail: Soft and bland for two weeks, then back to regular Follow Up Appointments: Lisandro Amor MD [Referring, Family Practice] Referral Note: f/u in 5-10 days for hospital f/u. Patient will need to make follow-up appointment. Forms: [employer] Info Instructions
[2025-08-29 11:00] VITALS: BP 146/82; PULSE 79; RESP 18; TEMP 36.4; O2SAT 95
--- NOTE | 2025-08-29 13:05 | P.NUTNOTE_ITS ---
Nutrition Progress Note Progress Note Progress Note: RDN with MD consult related to diverticulitis and poor appetite/intake. Patient admitted with 3-4 days of abdominal pain, found to have diverticulitis. She has had nausea and last of appetite. History includes CKD stage 5 and type 2 diabetes. Weight history has been stable, no significant changes. Current diet is lowfiber/surgical soft. She tolerate solids this morning. RDN visited with patient whom reprots she tries to follow a high fiber diet at home. Her appetitie has improved. She states she usually makes meals at home. She lives with her , Rey. Patient agreed to receive diet education without her present - she will provided him the handouts when they get home. Patient was provided diet education on a low fiber diet, appropriate for diverticulitis. Discussed foods to include and foods to avoid until MD recommends advancing to high fiber diet. Education also provided on gradually increasing fiber and following a high fiber diet (25-35 grams/day) long-term. Verbal and written information as well as sample menus provided on both diets from [facility]. Patient verbalized understanding. RDN's contact information was provided and patient was encouraged to contact RDN with questions.
--- NOTE | 2025-08-29 13:48 | PC.NURSE ---
End of shift report [id number]: Pleasant and cooperative with cares. Patient noted to be confused this morning, unsure of where she is and why she is here. Reoriented patient with no effective results. PT/OT alejandra completed. Discharge instructions reviewed with . No questions at this time. Assisted to personal vehicle via wheelchair.
== END 2025-08-29 13:23 | disposition home or self-care (01) ==
LOC: ED 11:46 → MEDSURG 12:06
PROVIDERS: Family Medicine; Admitting Provider Internal Medicine; Emergency Provider Emergency Medicine; Visit Provider Internal Medicine
DX: K57.32 Diverticulitis of large intestine without perforation or abscess without bleeding (principal); N39.0 Urinary tract infection, site not specified; E27.9 Disorder of adrenal gland, unspecified; G31.84 Mild cognitive impairment of uncertain or unknown etiology; N28.89 Other specified disorders of kidney and ureter; I12.0 Hypertensive chronic kidney disease with stage 5 chronic kidney disease or end stage renal disease; E11.22 Type 2 diabetes mellitus with diabetic chronic kidney disease
CPT/HCPCS: 36415; 74176; 80048; 80053; 81001; 82947; 82962; 83605; 83690; 85025; 86140; 87086; 94761; 96365; 96366; 96375; 97161; 97165; 99284; 99285; A9270; G0378; J0696; J1171; J1335; J1836; J2405; J7030; J7120